=== PATIENT | female | born 1965 | race Caucasian/White ===

== ENCOUNTER 2017-02-28 20:47 | Emergency (ER) | payer BC ==
[~2017-02-28] VITALS: Ht 172.7 cm; Wt 150.9 kg
[2017-02-28 20:50] VITALS: TEMP 37.8; Ht 172.7 cm; Wt 150.9 kg
[2017-02-28] MEDS ORDERED: ACETAMINOPHEN 500 MG TAB PO STA (21:11)
[2017-02-28] MEDS ORDERED: CEFTRIAXONE SOD 350MG/ML 1 GM VIAL IM ONE (21:15)
[2017-02-28] MEDS ORDERED: AMOX875T PO (21:20)
[2017-02-28] MEDS ORDERED: IBUP-103 PO (21:27)
[2017-02-28] MEDS ORDERED: AMOXICIL/CLAVU 875MG HOME PACK PO ONE (21:28)
--- NOTE | 2017-02-28 21:31 | EMERGENCY ROOM VISIT NOTE ---
History Report prepared by Priya: Nazanin Reynoso Under the Supervision of: Dr. Ozzie Flores M.D. First contact with patient: 20:58 Chief Complaint: LEG PAIN,LEG INJURY Stated Complaint: LEFT LEG RED, HURTS,SWOLLEN History of Present Illness The patient is a 51 year old female who presents to the Emergency Room with complaints of persistent left leg redness starting today. She began feeling sick yesterday. She had a fever, chills, and a headache. She noticed her leg was irritated, but she thought it was just because she had scratched it. Today she noticed that her leg had become increasingly red, swollen, and painful. She felt dizzy earlier, but attributes it to not eating. She denies any vomiting. She has had cellulitis before on her neck. She denies any history of diabetes. She denies any other medical problems. Source of History: patient Onset: today Position: leg (left) Quality: other (redness) Timing: other (persistent) Associated Symptoms: + chills, + fevers, + headache, No vomiting Note: Pt reports left leg swelling and pain, dizziness. Review of Systems See HPI for pertinent positives & negatives. A total of 10 systems reviewed and were otherwise negative. Past Medical & Surgical History of previous cellulitis. Family History No pertinent family history stated. Social History Smoking Status: Never Smoker Marital Status: Occupation Status: employed Current/Historical Medications Scheduled Amoxicillin & Pot Clavulanate (Augmentin 875-125 mg), 875 MG PO BID Ibuprofen Tab (Advil), 400 MG PO PRN UD Allergies Coded Allergies: NO KNOWN DRUG ALLERGIES (Verified Allergy, Unknown, ., 04/02/16) Physical Exam Vital Signs Date Time Temp Pulse Resp B/P Pulse Ox O2 Delivery O2 Flow Rate FiO2 02/28/17 21:45 68 16 133/65 99 02/28/17 20:50 37.8 100 18 166/93 92 Room Air Physical Exam GENERAL: Patient is in no acute distress. HEENT: No acute trauma, normocephalic atraumatic, mucous membranes moist, no nasal congestion, no scleral icterus. NECK: No stridor, no adenopathy, no meningismus, trachea is midline. LUNGS: Clear to auscultation bilaterally, no wheeze, no rhonchi, breath sounds equal. HEART: Without murmurs gallops or rubs, regular rate and rhythm. ABDOMEN: Soft, nontender, bowel sounds positive, no hernias, no peritonitis. EXTREMITIES: There is an area maybe 10x20 cm in size to the left anterior leg consistent with cellulitis. There is erythema and warmth, no drainage. The area was outlined. NEUROLOGIC: Oriented x 3, no acute motor or sensory deficits, no focal weakness. SKIN: No rash, no jaundice, no diaphoresis. Medical Decision & Procedures Medications Administered Medications (Trade) Dose Ordered Sig/Deborah Route Start Time Stop Time Status Last Admin Dose Admin Acetaminophen (Tylenol Tab) 1,000 mg NOW STAT PO 02/28/17 21:11 02/28/17 21:14 DC 02/28/17 21:31 1,000 MG Ceftriaxone Sodium (Rocephin Im) 1,000 mg NOW ONCE IM 02/28/17 21:15 02/28/17 21:16 DC 02/28/17 21:31 1,000 MG ED Course 2105: The patient was evaluated in room B3B. A complete history and physical exam was performed. 2110: Acetaminophen 1000 mg PO. 2114: Rocephin Im 1000 mg IM. 2119: Reevaluated the patient. Discussed results and discharge instructions: she verbalized understanding and agreement. The patient is ready for discharge. 2124: Augmentin Tab 875 mg PO. Medical Decision Differential diagnosis: cellulitis, sepsis, electrolyte imbalance, anemia, dehydration, flu. The patient presents with an area of left leg redness. She has a low-grade fever, she has felt like she has the flu. She is not diabetic, she is not vomiting. She is not toxic. The patient states that she has had cellulitis in the past. Her current presentation is consistent with cellulitis. The patient received IM ceftriaxone and oral Augmentin. She was given oral Tylenol. I do think she is stable for discharge. The area was outlined. She will be on Augmentin, rest, hydration, leg elevation were encouraged. The patient was instructed to return here for worsening symptoms or if not improving , she can see her doctor this week if doing well. Impression Primary Impression: Left leg cellulitis Scribe Attestation The scribe's documentation has been prepared under my direction and personally reviewed by me in its entirety. I confirm that the note above accurately reflects all work, treatment, procedures, and medical decision making performed by me. Departure Information Dispostion Home / Self-Care Prescriptions Amoxicillin & Pot Clavulanate (Augmentin 875-125 mg) 1 Tab Tab 875 MG PO BID for 10 Days, #20 TAB Prov: Ozzie Flores M.D. 02/28/17 Referrals David Brush M.D. (PCP) Forms HOME CARE DOCUMENTATION FORM, IMPORTANT VISIT INFORMATION, Work Instructions Patient Instructions My [facility] Additional Instructions motrin and or tylenol for fever and pain augmentin 2x per day for 10 days rest and stay hydrated keep the leg elevated see your doctor for a recheck friday or friday return for worsening redness, vomiting or worsening symptoms as we discussed
[2017-02-28 21:45] VITALS: BP 133/65; PULSE 68; O2SAT 99
[2017-03-01] MEDS ORDERED: AMOXICILLIN/CLAVULANATE TAB 875 MG TAB PO ONE (09:00)
== END 2017-02-28 21:53 | disposition home or self-care (01) ==
LOC: C.EDB 20:48
DX: L03.116 Cellulitis of left lower limb (principal)

== ENCOUNTER 2021-02-14 02:54 | Inpatient (IN) ==
[2021-02-14] MEDS ORDERED: SODIUM CHLORIDE 0.9% 1000ML 1,000 ML IV ONE (03:11)
[2021-02-14] MEDS ORDERED: dexAMETHasone**PF** 10 MG/ML VIAL IV ONE (03:11)
[2021-02-14] MEDS ORDERED: ACETAMINOPHEN 500 MG TAB PO STA (03:11)
[2021-02-14] MEDS ORDERED: ACETAMINOPHEN 325 MG TAB ONE (03:12)
[2021-02-14] MEDS ORDERED: DEXAMETHASONE SOD INJ 4 MG/ML VIAL ONE (03:14)
--- NOTE | 2021-02-14 03:17 | Emergency Department Note ---
Impression & Plan Pneumonia due to COVID-19 virus, Hypoxia ED Provider Note Name: FERNANDO GORMAN Age: 55 Sex: F Arrives Via: Walk-In Informant: Patient ED Provider: Per Barba MD Chief Complaint: Shortness of breath Impression: Pneumonia due to Covid 19 Virus Hypoxia Medical Decision Makin yr old female with hsitory of hypothyroid who has been ill for the last 9-10 days with positive covid test a few days ago as an outpatient arrives for worsening shortness of breath. Patient signfiicantly hypoxic on arrival with O2 sats in to mid 70s on simple exertion. Sats and patient comfort much improved when placed on 6L NC. Given Tylenol po and decadron IV on arrival. Dehydrated appearing and IV fluids started. She does not have signficant wheezing nor history COPD/Asthma at this time to require neb initially. With evidence of covid will hold on abx at this time as well. CXR consistent with covid and labs ok. Dimer is elevated without hypotension/tachy. Reviewed with hospitalist who will order CTA and manage patient further. Prior Medical Record and Triage/Nursing Notes reviewed by Me Additional history obtained from chart Differentials: Reactive airway disease, pneumonia, pneumothorax, COPD, CHF, infections, cardiac ischemia, pulmonary embolism, musculoskeletal, gastrointestinal, as well as other pathologies. Vital Signs: reviewed and remarkable for hypoxia Interventions: saline lock, nss bolus, decadron iv, tylenol po Labs:Reviewed and remarkable for elevated dimer Imaging:X ray results are stated below per my interpretation: Chest: 1 view: Bilateral infiltrative disease EKG:Per My Interpretation: Indication SHOB: NSR 87 bpm, qtc 404. No Ectopy. No Ischemia. No previous for comparison Cardiac/Tele Monitoring: Cardiac Monitoring: An Order was placed for continuous cardiac monitoring. The monitor shows a rate of 80 with a normal sinus rhythm. Consults:Dr Chong Abreu Hospitalist Plan: Disposition:Hospitalization. Condition: Fair History of Present Illness:55 yr old female arrives for evaluation of shortness of breath. Patient notes she has been having cough, shortness of breath for the last 10 days. Was tested for Covid 4 days ago and was positive at urgent care. She notes that she has started having diarrhea, body aches, chills, fevers, nausea, lightheaded, cough, and dyspnea on exertion. Rapidly worsening over the last 24 hours. States she couldn't catch her breath tonight. Used Tylenol earlier in day without improvement. Denies syncope, headache, neck stiffness, leg swelling, calf pain, abdominal pain, urinary symptoms, rashes, nor other symptoms. No history of lung problems. She does not smoke. No trauma/injuries. Notes exertion makes worse, rest makes better. ROS: See above HPI for pertinent positives & negatives. A total of 10 systems reviewed and were otherwise negative. Past Medical History:Hypothyroid Past Surgical History:Endoscopy Family History:Healthy Social History:Works at [employer], no drugs/tobacco use, has significant other, has daughter in [place]. Home Medications:Synthroid Allergies:NKDA Vitals:Blood Pressure: 138/84, Pulse 96, RR 22, T 38C, O2 85% on RA Physical Exam: GENERAL: Patient is ill appearing and in moderate distress. EYES: No scleral icterus, unremarkable pupils. ENT: Mucous membranes dry, no nasal congestion. NECK: No masses appreciated, nomeningismus, trachea is midline. RESPIRATORY: Tachypnea, dyspnea, diffuse crackles, no overt wheezing CARDIOVASCULAR: Regular rate and rhythm.No murmurs, rubs, gallops appreciated. GASTROINTESTINAL: Abdomen soft, non-tender, no peritonitis.Bowel sounds positive.No masses appreciated. BACK: No midline tenderness, no CVA tenderness EXTREMITIES: Normal motion all extremities, no cyanosis, no edema. NEUROLOGIC: Alert and oriented, no acute motor or sensory deficits, no focal weakness, cranial nerves grossly intact. SKIN: No rash, no jaundice, no diaphoresis. PSYCH: Appropriate GCS: 15 ED Course: Times/Reassessments: Vastly improved on NC O2, hospitalist in to evaluate Per Barba MD Past Med/Surg History Medical History (Updated 02/14/21 @ 17:06 by Per Barba MD) History of colon polyps Hypothyroidism Neuropathy Bilateral feet Surgical History History of colonoscopy History of wisdom tooth extraction Family History (Updated 04/28/19 @ 09:25 by Silvia Irving RN) Father Family history of diabetes mellitus Uncle Family hx of colon cancer Grandmother (Maternal) Family hx of colon cancer Other No family history of adverse response to anesthesia Social History Smoking Status: Never smoker Second Hand Exposure: Yes (parents smoked); Hx Alcohol Use: Yes Alcohol type: beer, wine and hard liquor Hx Substance Use: No Preferred Language: German Communication Ability: Effective Refractory Worker Required: No Beliefs That Will Affect Care: None Current Living Situation: Family Current Living Situation Comment: Lives with boyfriend Other Information That Helps Us Care for You: No Feels Safe at Home: Yes Safety Concerns: Feels Safe At This Time Assistive Devices: Glasses Allergies Allergies Allergy/AdvReac Type Severity Reaction Status Date / Time No Known Drug Allergies Allergy Unknown . Verified 05/06/19 07:56 Home Meds Home Medications Medication Instructions Recorded Confirmed fluticasone propionate [Flonase 2 spray INTRANASAL BID 04/28/19 05/06/19 Allergy Relief] levothyroxine 100 mcg PO QAM 04/28/19 05/06/19 Results & Data (ED) Vital Signs Vital Signs - 24 hr 02/14/21 02:57 02/14/21 03:28 02/14/21 03:29 Temperature 38 C H Temperature Source Temporal Artery Scan Pulse Rate 96 H 90 88 Pulse Rate from SpO2 Sensor 90 88 Respiratory Rate 22 27 H 26 H Respiratory Effort / Characteristics Respiratory Depth Respiratory Pattern Blood Pressure 138/84 144/76 H Blood Pressure Mean 102 98 Blood Pressure Position Sitting Pulse Oximetry 85 L 92 93 Oxygen Delivery Method Room Air Oxygen Flow Rate Sepsis Recent Fever Within 48 Hours Yes Sepsis New/Unexplained Change in Mental Status No Sepsis Action Taken by Nursing No Action Required Oxygen Flow Rate - Titration Pulse Oximetry Post Tiitration 02/14/21 03:30 02/14/21 03:45 02/14/21 04:00 Temperature Temperature Source Pulse Rate 87 85 88 Pulse Rate from SpO2 Sensor 87 87 88 Respiratory Rate 24 21 25 H Respiratory Effort / Characteristics Respiratory Depth Respiratory Pattern Blood Pressure 137/63 123/61 115/58 L Blood Pressure Mean 87 81 77 Blood Pressure Position Pulse Oximetry 93 93 93 Oxygen Delivery Method Oxygen Flow Rate Sepsis Recent Fever Within 48 Hours Sepsis New/Unexplained Change in Mental Status Sepsis Action Taken by Nursing Oxygen Flow Rate - Titration Pulse Oximetry Post Tiitration 02/14/21 04:02 02/14/21 04:15 02/14/21 04:17 Temperature Temperature Source Pulse Rate 106 H 87 Pulse Rate from SpO2 Sensor 105 H 87 Respiratory Rate 31 H 20 Respiratory Effort / Characteristics Gasping/Agonal Nasal Flaring Short of Breath SOB on Exertion Respiratory Depth Shallow Respiratory Pattern Tachypnea Blood Pressure 125/70 Blood Pressure Mean 88 Blood Pressure Position Pulse Oximetry 78 L 93 93 Oxygen Delivery Method Room Air Oxygen Flow Rate 6 Sepsis Recent Fever Within 48 Hours Sepsis New/Unexplained Change in Mental Status Sepsis Action Taken by Nursing Oxygen Flow Rate - Titration 6 Pulse Oximetry Post Tiitration 93 02/14/21 04:30 02/14/21 04:31 02/14/21 04:45 Temperature Temperature Source Pulse Rate 81 81 80 Pulse Rate from SpO2 Sensor 81 81 81 Respiratory Rate 25 H 24 23 Respiratory Effort / Characteristics Respiratory Depth Respiratory Pattern Blood Pressure 123/74 110/59 L Blood Pressure Mean 90 76 Blood Pressure Position Pulse Oximetry 92 92 94 Oxygen Delivery Method Oxygen Flow Rate Sepsis Recent Fever Within 48 Hours Sepsis New/Unexplained Change in Mental Status Sepsis Action Taken by Nursing Oxygen Flow Rate - Titration Pulse Oximetry Post Tiitration 02/14/21 04:46 02/14/21 05:00 02/14/21 05:01 Temperature Temperature Source Pulse Rate 81 75 76 Pulse Rate from SpO2 Sensor 81 76 77 Respiratory Rate 20 24 22 Respiratory Effort / Characteristics Respiratory Depth Respiratory Pattern Blood Pressure 122/69 Blood Pressure Mean 86 Blood Pressure Position Pulse Oximetry 93 93 93 Oxygen Delivery Method Oxygen Flow Rate Sepsis Recent Fever Within 48 Hours Sepsis New/Unexplained Change in Mental Status Sepsis Action Taken by Nursing Oxygen Flow Rate - Titration Pulse Oximetry Post Tiitration 02/14/21 05:15 02/14/21 05:16 02/14/21 05:30 Temperature Temperature Source Pulse Rate 76 76 74 Pulse Rate from SpO2 Sensor 76 77 75 Respiratory Rate 22 22 19 Respiratory Effort / Characteristics Respiratory Depth Respiratory Pattern Blood Pressure 131/69 99/74 L Blood Pressure Mean 89 82 Blood Pressure Position Pulse Oximetry 92 92 92 Oxygen Delivery Method Oxygen Flow Rate Sepsis Recent Fever Within 48 Hours Sepsis New/Unexplained Change in Mental Status Sepsis Action Taken by Nursing Oxygen Flow Rate - Titration Pulse Oximetry Post Tiitration 02/14/21 05:31 Temperature Temperature Source Pulse Rate 77 Pulse Rate from SpO2 Sensor 76 Respiratory Rate 21 Respiratory Effort / Characteristics Respiratory Depth Respiratory Pattern Blood Pressure Blood Pressure Mean Blood Pressure Position Pulse Oximetry 92 Oxygen Delivery Method Oxygen Flow Rate Sepsis Recent Fever Within 48 Hours Sepsis New/Unexplained Change in Mental Status Sepsis Action Taken by Nursing Oxygen Flow Rate - Titration Pulse Oximetry Post Tiitration Laboratory Data Result diagrams: 02/14/21 03:45 02/14/21 03:45 Lab Results 02/14/21 02/14/21 02/14/21 Range/Units 03:40 03:45 03:45 WBC (4.8-10.8) K/uL RBC (4.2-5.4) M/uL Hgb (12.0-16.0) g/dL Hct (37-47) % MCV (80-100) fL MCH (25-34) pg MCHC (32-36) g/dL RDW Std Deviation (36.4-46.3) fL RDW Coeff of Moer (11.5-14.5) % Plt Count (130-400) K/uL MPV (7.4-10.4) fL Immature Gran % (Auto) % Neut % (Auto) % Lymph % (Auto) % Rogers % (Auto) % Eos % (Auto) % Baso % (Auto) % Neut # (Auto) (1.4-6.5) K/uL Lymph # (Auto) (1.2-3.4) K/uL Rogers # (Auto) (0.11-0.59) K/uL Eos # (Auto) (0-0.5) K/uL Baso # (Auto) (0-0.2) K/uL Immature Gran # (Auto) (0.00-0.02) K/uL PT (9.0-12.0) Seconds INR (0.9-1.1) D-Dimer (0-500) ug/L FEU Sodium 135 L (136-145) mmol/L Potassium 3.9 (3.5-5.1) mmol/L Chloride 104 (98-107) mmol/L Carbon Dioxide 27 (21-32) mmol/L Anion Gap 4.0 (3-11) BUN 27 H (7-18) mg/dl Creatinine 1.44 H (0.6-1.2) mg/dl Est Cr Clr Drug Dosing Not Reportable Est GFR ( Amer) 47.3 Est GFR (Non-Af Amer) 40.8 BUN/Creatinine Ratio 18.6 (10-20) Glucose 148 H (70-99) mg/dl Lactate 1.5 (0.4-2.0) mmol/L Calcium 8.4 L (8.5-10.1) mg/dl Magnesium 2.2 (1.8-2.4) mg/dl Total Bilirubin 0.5 (0.2-1) mg/dl Direct Bilirubin 0.2 (0-0.2) mg/dl AST 59 H (15-37) U/L ALT 34 (12-78) U/L Alkaline Phosphatase 78 (45-117) U/L Troponin I < 0.015 (0-0.045) ng/ml Total Protein 8.7 H (6.4-8.2) gm/dl Albumin 3.0 L (3.4-5.0) gm/dl Lipase 388 (73-393) U/L Procalcitonin (0-0.5) ng/ml TSH 1.950 (0.300-4.500) uIu/ml Urine Color Yellow Urine Appearance Cloudy A (Clear) Urine pH 5.0 (4.5-7.5) Ur Specific Cochran 1.019 (1.000-1.030) Urine Protein 2+ H (Negative) Urine Glucose (UA) Negative (Negative) Urine Ketones Negative (Negative) Urine Blood 2+ H (Negative) Urine Nitrite Negative (Negative) Urine Bilirubin Negative (Negative) Urine Urobilinogen Negative (Negative) Ur Leukocyte Esterase 1+ H (Negative) Urine WBC (Auto) 10-30 H (0-5) /hpf Urine RBC (Auto) 0-4 (0-4) /hpf U Hyaline Cast (Auto) 5-10 H (0-5) /lpf U Epithel Cells (Auto) 20-30 H (0-5) /lpf Urine Bacteria (Auto) 2+ H (Negative) COVID-19 Eval Order SARS-CoV-2 (PCR) (Negative) Influenza Type A (PCR) (Neg) Influenza Type B (PCR) (Neg) RSV (RT-PCR) (Neg) 02/14/21 02/14/21 02/14/21 Range/Units 03:45 03:45 03:45 WBC 6.70 (4.8-10.8) K/uL RBC 4.76 (4.2-5.4) M/uL Hgb 14.6 (12.0-16.0) g/dL Hct 43.4 (37-47) % MCV 91.2 (80-100) fL MCH 30.7 (25-34) pg MCHC 33.6 (32-36) g/dL RDW Std Deviation 47.4 H (36.4-46.3) fL RDW Coeff of Omer 14.0 (11.5-14.5) % Plt Count 152 (130-400) K/uL MPV 10.6 H (7.4-10.4) fL Immature Gran % (Auto) 0.6 % Neut % (Auto) 82.1 % Lymph % (Auto) 8.5 % Rogers % (Auto) 8.8 % Eos % (Auto) 0.0 % Baso % (Auto) 0.0 % Neut # (Auto) 5.50 (1.4-6.5) K/uL Lymph # (Auto) 0.57 L (1.2-3.4) K/uL Rogers # (Auto) 0.59 (0.11-0.59) K/uL Eos # (Auto) 0.00 (0-0.5) K/uL Baso # (Auto) 0.00 (0-0.2) K/uL Immature Gran # (Auto) 0.04 H (0.00-0.02) K/uL PT 9.8 (9.0-12.0) Seconds INR 1.0 (0.9-1.1) D-Dimer 1630 H* (0-500) ug/L FEU Sodium (136-145) mmol/L Potassium (3.5-5.1) mmol/L Chloride (98-107) mmol/L Carbon Dioxide (21-32) mmol/L Anion Gap (3-11) BUN (7-18) mg/dl Creatinine (0.6-1.2) mg/dl Est Cr Clr Drug Dosing Est GFR ( Amer) Est GFR (Non-Af Amer) BUN/Creatinine Ratio (10-20) Glucose (70-99) mg/dl Lactate (0.4-2.0) mmol/L Calcium (8.5-10.1) mg/dl Magnesium (1.8-2.4) mg/dl Total Bilirubin (0.2-1) mg/dl Direct Bilirubin (0-0.2) mg/dl AST (15-37) U/L ALT (12-78) U/L Alkaline Phosphatase (45-117) U/L Troponin I (0-0.045) ng/ml Total Protein (6.4-8.2) gm/dl Albumin (3.4-5.0) gm/dl Lipase (73-393) U/L Procalcitonin 0.09 (0-0.5) ng/ml TSH (0.300-4.500) uIu/ml Urine Color Urine Appearance (Clear) Urine pH (4.5-7.5) Ur Specific Cochran (1.000-1.030) Urine Protein (Negative) Urine Glucose (UA) (Negative) Urine Ketones (Negative) Urine Blood (Negative) Urine Nitrite (Negative) Urine Bilirubin (Negative) Urine Urobilinogen (Negative) Ur Leukocyte Esterase (Negative) Urine WBC (Auto) (0-5) /hpf Urine RBC (Auto) (0-4) /hpf U Hyaline Cast (Auto) (0-5) /lpf U Epithel Cells (Auto) (0-5) /lpf Urine Bacteria (Auto) (Negative) COVID-19 Eval Order SARS-CoV-2 (PCR) (Negative) Influenza Type A (PCR) (Neg) Influenza Type B (PCR) (Neg) RSV (RT-PCR) (Neg) 02/14/21 02/14/21 Range/Units 03:50 03:50 WBC (4.8-10.8) K/uL RBC (4.2-5.4) M/uL Hgb (12.0-16.0) g/dL Hct (37-47) % MCV (80-100) fL MCH (25-34) pg MCHC (32-36) g/dL RDW Std Deviation (36.4-46.3) fL RDW Coeff of Omer (11.5-14.5) % Plt Count (130-400) K/uL MPV (7.4-10.4) fL Immature Gran % (Auto) % Neut % (Auto) % Lymph % (Auto) % Rogers % (Auto) % Eos % (Auto) % Baso % (Auto) % Neut # (Auto) (1.4-6.5) K/uL Lymph # (Auto) (1.2-3.4) K/uL Rogers # (Auto) (0.11-0.59) K/uL Eos # (Auto) (0-0.5) K/uL Baso # (Auto) (0-0.2) K/uL Immature Gran # (Auto) (0.00-0.02) K/uL PT (9.0-12.0) Seconds INR (0.9-1.1) D-Dimer (0-500) ug/L FEU Sodium (136-145) mmol/L Potassium (3.5-5.1) mmol/L Chloride (98-107) mmol/L Carbon Dioxide (21-32) mmol/L Anion Gap (3-11) BUN (7-18) mg/dl Creatinine (0.6-1.2) mg/dl Est Cr Clr Drug Dosing Est GFR ( Amer) Est GFR (Non-Af Amer) BUN/Creatinine Ratio (10-20) Glucose (70-99) mg/dl Lactate (0.4-2.0) mmol/L Calcium (8.5-10.1) mg/dl Magnesium (1.8-2.4) mg/dl Total Bilirubin (0.2-1) mg/dl Direct Bilirubin (0-0.2) mg/dl AST (15-37) U/L ALT (12-78) U/L Alkaline Phosphatase (45-117) U/L Troponin I (0-0.045) ng/ml Total Protein (6.4-8.2) gm/dl Albumin (3.4-5.0) gm/dl Lipase (73-393) U/L Procalcitonin (0-0.5) ng/ml TSH (0.300-4.500) uIu/ml Urine Color Urine Appearance (Clear) Urine pH (4.5-7.5) Ur Specific Cochran (1.000-1.030) Urine Protein (Negative) Urine Glucose (UA) (Negative) Urine Ketones (Negative) Urine Blood (Negative) Urine Nitrite (Negative) Urine Bilirubin (Negative) Urine Urobilinogen (Negative) Ur Leukocyte Esterase (Negative) Urine WBC (Auto) (0-5) /hpf Urine RBC (Auto) (0-4) /hpf U Hyaline Cast (Auto) (0-5) /lpf U Epithel Cells (Auto) (0-5) /lpf Urine Bacteria (Auto) (Negative) COVID-19 Eval Order [facility]Rsv at [facility] SARS-CoV-2 (PCR) POSITIVE A* (Negative) Influenza Type A (PCR) Negative (Neg) Influenza Type B (PCR) Negative (Neg) RSV (RT-PCR) Negative (Neg) Administered Medications Enoxaparin Sodium (Enoxaparin Inj 40 Mg/0.4 Ml Syr) 40 mg SQ Q12H [facility] Stop: 03/16/21 07:59 Last Admin: 02/14/21 09:00 Dose: 40 mg Documented by: [id number] Fluticasone Propionate (Fluticasone Propionate Na Spr 16 Gm Btl) 2 sprays NA BID [facility] Stop: 03/16/21 08:59 Last Admin: 02/14/21 09:01 Dose: 2 sprays Documented by: [id number] Ceftriaxone Sodium 2,000 mg/ (Dextrose) 70 mls @ 100 mls/hr IV Q24H [facility]; Protocol Stop: 02/24/21 08:59 Last Infusion: 02/14/21 10:30 Dose: 0 mls/hr Documented by: [id number] Admin: 02/14/21 09:00 Dose: 100 mls/hr Documented by: [id number] Levothyroxine Sodium (Levothyroxine Sodium 100 Mcg Tablet) 100 mcg PO DAILYBB [facility] Stop: 03/16/21 06:29 Last Admin: 02/14/21 09:00 Dose: 100 mcg Documented by: [id number] Sodium Chloride (Sodium Chloride 0.9% 10ml Flush) 30 ml IV DAILY@1300 [facility] Stop: 02/18/21 13:01 Last Admin: 02/14/21 09:01 Dose: 30 ml Documented by: [id number] Discontinued Medications Acetaminophen (Acetaminophen 325 Mg Tab) Confirm Administered Dose 650 mg .ROUTE .STK-MED ONE Stop: 02/14/21 03:13 Last Admin: 02/14/21 04:14 Dose: Not Given Documented by: [id number] Acetaminophen (Acetaminophen 500 Mg Tab) 1,000 mg PO NOW [facility] Stop: 02/14/21 03:12 Last Admin: 02/14/21 03:33 Dose: 1,000 mg Documented by: [id number] Dexamethasone (Dexamethasone Sod Inj 4 Mg/Ml Vial) Confirm Administered Dose 12 mg .ROUTE .STK-MED ONE Stop: 02/14/21 03:15 Last Admin: 02/14/21 04:14 Dose: Not Given Documented by: [id number] Dexamethasone Sodium Phosphate (DexamethasonePf 10 Mg/Ml Vial) 10 mg IV NOW ONE Stop: 02/14/21 03:12 Last Admin: 02/14/21 03:47 Dose: 10 mg Documented by: [id number] Sodium Chloride (Nss 1000ml) 1,000 mls @ 999 mls/hr IV .Q1H1M ONE Stop: 02/14/21 04:11 Last Infusion: 02/14/21 05:29 Dose: 0 mls/hr Documented by: [id number] Admin: 02/14/21 03:47 Dose: 999 mls/hr Documented by: [id number] Remdesivir 200 mg/ Sodium (Chloride) 250 mls @ 125 mls/hr IV ONE ONE; Protocol Stop: 02/14/21 09:29 Last Infusion: 02/14/21 11:38 Dose: 0 mls/hr Documented by: [id number] Admin: 02/14/21 08:24 Dose: 125 mls/hr Documented by: [id number] Sodium Chloride (Nss 1000ml) 1,000 mls @ 100 mls/hr IV .Q10H [facility] Stop: 02/14/21 16:58 Last Admin: 02/14/21 08:25 Dose: 100 mls/hr Documented by: [id number] Ioversol (Optiray 350 500ml) 120 ml IV ONCE ONE Stop: 02/14/21 09:28 Last Admin: 02/14/21 09:27 Dose: 120 ml Documented by: [id number] Miscellaneous (Patient's Height And/Or Weight Needed) 1 ea N/A Q1H [facility] Stop: 03/16/21 07:14 Last Admin: 02/14/21 11:38 Dose: 1 ea Documented by: [id number] Admin: 02/14/21 08:25 Dose: 1 ea Documented by: [id number] Imaging Data Radiologist's Impression: Chest X-Ray 02/14/21 03:13 SINGLE VIEW CHEST CLINICAL HISTORY: Hypoxia. Covid. FINDINGS: An AP, portable, upright chest radiograph is obtained. No prior studies are available for comparison at the time of dictation. The heart is top normal for projection. Multifocal airspace consolidation is seen throughout both lungs. No large pleural effusion or pneumothorax is identified. The bony thorax is grossly intact. IMPRESSION: Multifocal airspace consolidation is consistent with the reported history of a viral pneumonia. Radiographic follow-up to resolution is recommended. ACT 112: Negative or not required by law. Electronically signed by: Ozzie Alfaro M.D. 02/14/2021 7:52 AM Discharge Plan Visit Data Chief Complaint: Respiratory Problems Stated Complaint: HAVING HARD TIME BREATHING,DIZZY ED Provider: Per Barba Discharge Problem: Pneumonia due to COVID-19 virus, Hypoxia Patient Disposition: Admitted As Inpatient Discharge Instructions Interventions: ED Discharge Assessment Last Done: 02/14/21 06:29
[2021-02-14 04:06] LABS: Hematocrit (blood only) 43.4 % (37-47); Hemoglobin 14.6 g/dL (12.0-16.0); Immature Granulocytes # (auto) 0.04 K/uL (0.00-0.02); Immature Granulocytes % (auto) 0.6 %; Lymphocytes # (auto) 0.57 K/uL (1.2-3.4); Lymphocytes % (auto) 8.5 %; Mean Corpuscular Hemoglobin 30.7 pg (25-34); Mean Corpuscular Hgb Conc 33.6 g/dL (32-36); Mean Corpuscular Volume 91.2 fL (80-100); Mean Platelet Volume 10.6 fL (7.4-10.4); Monocytes # (auto) 0.59 K/uL (0.11-0.59); Monocytes % (auto) 8.8 %; Neutrophils % (auto) 82.1 %; Platelet Count 152 K/uL (130-400); RDW Standard Deviation 47.4 fL (36.4-46.3); Red Blood Count 4.76 M/uL (4.2-5.4)
[2021-02-14 04:09] LABS: Appearance Urine Cloudy (Clear); Bacteria Urine Automated 2+ (Negative); Bilirubin Urine Negative (Negative); Blood Urine 2+ (Negative); Color Urine Yellow; Epithelial Cell Urine Auto 20-30 /lpf (0-5); Glucose Urine UA Negative (Negative); Ketones Urine Negative (Negative); Leukocyte Esterase Urine 1+ (Negative); Nitrite Urine Negative (Negative); Protein Urine 2+ (Negative); RBC Urine Automated 0-4 /hpf (0-4); Specific Gravity Urine 1.019 (1.000-1.030); Urobilinogen Urine Negative (Negative)
[2021-02-14 04:16] LABS: Prothrombin Time 9.8 Seconds (9.0-12.0)
[2021-02-14 04:22] LABS: D Dimer 1630 ug/L FEU (0-500)
[2021-02-14 04:28] LABS: Alanine Aminotransferase 34 U/L (12-78); Aspartate Aminotransferase 59 U/L (15-37); BUN Creatinine Ratio 18.6 (10-20); Bilirubin Direct 0.2 mg/dl (0-0.2); Blood Urea Nitrogen 27 mg/dl (7-18); Calcium 8.4 mg/dl (8.5-10.1); Carbon Dioxide 27 mmol/L (21-32); Chloride 104 mmol/L (98-107); Est GFR (African American) 47.3; Est GFR (Non-African American) 40.8; Glucose 148 mg/dl (70-99); Lipase 388 U/L (73-393); Magnesium 2.2 mg/dl (1.8-2.4); Potassium 3.9 mmol/L (3.5-5.1); Sodium 135 mmol/L (136-145)
[2021-02-14 04:39] LABS: Alkaline Phosphatase 78 U/L (45-117); Bilirubin,Total 0.5 mg/dl (0.2-1); Total Protein 8.7 gm/dl (6.4-8.2); Troponin I < 0.015 ng/ml (0-0.045)
[2021-02-14 04:42] LABS: Influenza A virus by PCR Negative (Neg); Influenza B virus by PCR Negative (Neg); RSV by PCR Negative (Neg)
[2021-02-14 05:15] LABS: SARS CoV2 RNA(COVID-19) InHosp POSITIVE (Negative)
[2021-02-14] MEDS ORDERED: NITROGLYCERIN SL 0.4 MG/TAB TAB SL PRN (06:59)
[2021-02-14] MEDS ORDERED: ACETAMINOPHEN 325 MG TAB PO PRN (06:59)
[2021-02-14] MEDS ORDERED: SODIUM CHLORIDE 0.9% 1000ML 1,000 ML IV SCH (06:59)
--- NOTE | 2021-02-14 07:09 | History and Physical Report ---
DATE OF ADMISSION: 02/14/2021 CHIEF COMPLAINT: Shortness of breath. HISTORY OF PRESENT ILLNESS: This is a 55-year-old female with past medical history significant for hyperlipidemia, prediabetes, hypothyroidism, morbid obesity, history of fibroid uterus, postmenopausal bleeding, presents with shortness of breath. The patient says she has COVID symptoms since about 10 days ago on Friday with cough, on and off headaches, on and off fevers, but it really got worse from Friday and last Friday she was tested positive for COVID, but symptoms were not getting better. She has few episodes of diarrhea, short of breath, poor appetite, not eating anything which prompted her to come to the ER and she was saturating only 72% on room air, requiring 6 liters oxygen in the ER. Denies any chest pain, no blurred vision, no earache, no runny nose, no sore throat, has cough with whitish yellow phlegm. Currently resting comfortably, hemodynamically stable, talking in full sentences and seems comfortable. Normal bladder movements. No rash. She says she was exposed at workplace. ALLERGIES: No known drug allergies. PAST MEDICAL HISTORY: As mentioned above. PAST SURGICAL HISTORY: Colonoscopy, dental surgery, colposcopy, genital warts removed. MEDICATIONS: The patient is on Flonase intranasal b.i.d., levothyroxine 100 mcg p.o. a.m. FAMILY HISTORY: Significant for paternal great grandmother had breast cancer. Maternal grandmother had colon cancer. Maternal grandfather has lung cancer. Paternal grandfather had lung cancer. Mother has lung cancer. Father has diabetes. Maternal uncle has colon cancer. SOCIAL HISTORY: Lives with significant other. No smoking. Alcohol socially. No drug use. REVIEW OF SYMPTOMS: As per HPI. Rest of review of systems negative. PHYSICAL EXAMINATION: GENERAL: The patient is morbidly obese, not in acute distress. VITAL SIGNS: Temperature 38, pulse 77, respiratory rate 21, blood pressure 122/69, currently 99/74, oxygen when she came in, she was in 78%, currently 92% on 6 liters. HEENT: Pupils equal, round, reactive to light. Oral mucosa moist. NECK: No JVD. No neck masses. CARDIOVASCULAR: S1, S2, regular rate and rhythm, no murmur, no gallop. RESPIRATORY SYSTEM: Normal AP diameter. No accessory muscle use. No wheezing, no crackles. ABDOMEN: Soft, bowel sounds present, nontender. No distention. CENTRAL NERVOUS SYSTEM: Cranial nerves II-XII grossly intact, nonfocal. EXTREMITIES: No edema, no erythema. LABORATORY DATA: WBC 6.7, hemoglobin 14.6, hematocrit 43.4, platelets 152, PT 9.8, INR 1. D-dimer 630. Sodium 135, potassium 3.9, chloride 104, bicarbonate 27, BUN 27, creatinine 1.4, serum glucose 148. Lactate 1.5, calcium 8.4, magnesium 2.2, total bilirubin 0.5, direct bilirubin 0.2, AST 59, ALT 34, alkaline phosphatase 78, troponin I less than 0.015. TSH 1.9. Procalcitonin 0.09, lipase 388. Urinalysis positive for leukocyte esterase and +2 bacteria. SARS-CoV-2 PCR positive. Influenza A and B PCR negative, RSV PCR negative. Chest x-ray, bilateral infiltrates seen. ASSESSMENT AND PLAN: A 55-year-old female presents with COVID pneumonia and hypoxia. 1. COVID pneumonia, hypoxia requiring 6 liters of oxygen. The patient is morbidly obese.Meets criteria for remdesivir and steroids. We will follow the remdesivir labs. Follow the inflammatory markers. Continue oxygen supplementation. Closely monitor on tele floor. D-dimer elevated at 1630. We will do CTA of the chest to rule out any pulmonary embolism. 2. Mild acute kidney injury. Creatinine 1.4, got fluids in the ER. Avoid nephrotoxic agents. We will continue fluids as getting CTA chest to rule out PE and follow the repeat labs. 3. Urinary tract infection. Continue with Rocephin. Follow the cultures. 4. Hypothyroidism. Continue Synthroid. 5. Morbid obesity, needs counseling. 6. prediabetes. Follow hba1c levels. Follow blood sugars as Patient getting steroids 6. Deep venous thrombosis prophylaxis, Lovenox. DISPOSITION: Admit to tele floor. Expect discharge home and follow with family doctor. Level 1 full code. dietary services manager to help with discharge planning. MTDD
[2021-02-14] MEDS ORDERED: REMDESIVIR 200 MG in SODIUM CHLORIDE 0.9% 210 ML IV ONE (07:30)
--- NOTE | 2021-02-14 07:54 | XRay Report ---
SINGLE VIEW CHEST CLINICAL HISTORY: Hypoxia. Covid. FINDINGS: An AP, portable, upright chest radiograph is obtained. No prior studies are available for c omparison at the time of dictation. The heart is top normal for projection. Multifocal airspace cons olidation is seen throughout both lungs. No large pleural effusion or pneumothorax is identified. The bony thorax is grossly intact. IMPRESSION: Multifocal airspace consolidation is consistent with the reported history of a viral pneu monia. Radiographic follow-up to resolution is recommended. ACT 112: Negative or not required by law. Electronically signed by: Ozzie Alfaro M.D. 02/14/2021 7:52 AM
[2021-02-14] MEDS: PATIENT'S HEIGHT AND/OR WEIGHT NEEDED SCH ×3 (08:25→19:31)
[2021-02-14] MEDS: LEVOTHYROXINE SODIUM 100 MCG TABLET PO SCH (09:00)
[2021-02-14] MEDS: ENOXAPARIN INJ 40 MG/0.4 ML SYR SQ SCH ×2 (09:00→19:41)
[2021-02-14] MEDS: cefTRIAXone SODIUM 2,000 MG in DEXTROSE 5% 50 ML IV SCH (09:00)
[2021-02-14] MEDS: SODIUM CHLORIDE 0.9% 10ML FLUSH IV SCH (09:01)
[2021-02-14] MEDS: FLUTICASONE PROPIONATE NA SPR 16 GM BTL SCH ×2 (09:01→20:32)
[2021-02-14] MEDS ORDERED: OPTIRAY 350 500ml IV ONE (09:27)
--- NOTE | 2021-02-14 09:57 | CT Scan Report ---
CT ANGIOGRAPHY OF THE CHEST, PULMONARY EMBOLUS PROTOCOL CLINICAL HISTORY: Worsening shortness of breath. Covid. COMPARISON STUDY: Chest radiograph performed earlier today. TECHNIQUE: Following IV administration of 120 mL of Optiray, helical axial images of the chest were o btained utilizing the pulmonary embolus protocol. Maximal intensity projections and sagittal and cor onal reformats were viewed on an independent 3D workstation. IV contrast was administered without co mplication. Automated exposure control was utilized for the study. A dose lowering technique was ut ilized adhering to the principles of ALARA. CT DOSE: 927.32 mGy.cm FINDINGS: No pulmonary emboli are identified. There is no thoracic aortic dissection. There are mult iple mildly enlarged mediastinal and bilateral hilar lymph nodes. No pericardial effusion is noted. T here is no pneumothorax or pleural effusion. Moderate to extensive bilateral airspace opacities have progressed since chest radiograph performed earlier today. There is no cavitation. The central airway s are patent. Visualized portions of the upper abdomen demonstrate hepatic steatosis. A low attenuati on 2.1 cm left adrenal nodule is likely benign. This favors an adenoma. IMPRESSION: 1. No pulmonary emboli identified. 2. Progression of moderate to extensive bilateral airspace opacities since chest radiograph performed earlier today. The findings represent viral pneumonia. 3. Multiple mildly enlarged mediastinal and bilateral hilar lymph nodes which are likely reactive. 4. Cardiomegaly. 5. Hepatic steatosis. ACT 112: Negative or not required by law. Electronically signed by: Caleb Leyva M.D. 02/14/2021 9:56 AM
[2021-02-14] MEDS ORDERED: BENZONATATE 100 MG CAPSULE PO PRN (12:16)
--- NOTE | 2021-02-14 15:24 | Electrocardiogram Report ---
Test Reason : Blood Pressure : / mmHG Vent. Rate : 087 BPM Atrial Rate : 087 BPM P-R Int : 146 ms QRS Dur : 100 ms QT Int : 336 ms P-R-T Axes : -01 024 033 degrees QTc Int : 404 ms Normal sinus rhythm Normal ECG No previous ECGs available Confirmed by Nima Stephens ([id number]) on 02/14/2021 3:24:16 PM Referred By: REFERRED SELF Confirmed By:Stefano Stephens
--- NOTE | 2021-02-14 16:37 | Hospitalist Progress Note ---
Date of Service February 14, 2021 Assessment & Plan (1) Pneumonia due to COVID-19 virus: Patient is a 55 yr female who presents with COVID pneumonia and hypoxia. Acute respiratory failure with hypoxia Multifocal COVID-19 pneumonia -CTA:No pulmonary emboli identified. Progression of moderate to extensive bilateral airspace opacities since chest radiograph performed earlier today. The findings represent viral pneumonia. Multiple mildly enlarged mediastinal and bilateral hilar lymph nodes which are likely reactive. Cardiomegaly. Hepatic steatosis. -Procalcitonin 0.09 -D-dimer 1630 Continue remdesivir, dexamethasone as per protocol Continue supplemental oxygen as needed Monitor volume status Pulmonary Hygiene Antitussive PRN Acute Kidney Injury Cr:1.4 Avoid nephrotoxic agents as able Continue gentle IV fluids Monitor renal function Abnormal UA R/O UTI Blood, urine culture pending Empirically started on Rocephin Hypothyroidism Continue Levothyroxine Morbid obesity BMI 50 Prediabetes Update HbA1C DVT Px: Lovenox SQ Code Status Full Code Admission and Anticipated Discharge Date Admission Date: February 14, 2021 Subjective Patient is seen and examined medicine States dyspnea is better Reports cough with clear expectoration Also reports having some chest discomfort associated with cough Intermittent dizziness with ambulation Denies nausea, vomiting, diarrhea, abdominal pain, dysuria, hematuria Offers no other complaints Review of Systems Review of Systems: All systems reviewed & are unremarkable except as noted in HPI & below Physical Exam Physical Exam: Physical Exam: Vitals signs as noted above General Appearance:Morbidly Obese, no apparent distress Head: normocephalic, Atraumatic Eyes: normal inspection, EOMI Neck: supple, Trachea midline Respiratory/Chest: Decreased breath sounds, B/L Crackles Cardiovascular: S1, S2, No murmur Abdomen/GI:Soft, Non tender, Bowel sounds present Extremities/Musculoskeletal:normal inspection, Trace edema Neurologic/Psych:AAOX3, grossly no focal neurological deficits Skin: normal color, warm Results & Data Results & Data ([facility]) Vital Signs (Past 12 Hours) Vital Signs Temp Pulse Pulse Resp BP BP Pulse Ox 02/14/21 16:08 36.8 C 66 18 129/80 91 02/14/21 10:58 68 18 153/91 H 93 02/14/21 07:10 37.3 C 69 22 130/66 93 02/14/21 06:29 36.8 C 02/14/21 05:31 77 21 92 02/14/21 05:30 74 19 99/74 L 92 02/14/21 05:16 76 22 92 02/14/21 05:15 76 22 131/69 92 02/14/21 05:01 76 22 93 02/14/21 05:00 75 24 122/69 93 02/14/21 04:46 81 20 93 02/14/21 04:45 80 23 110/59 L 94 02/14/21 04:31 81 24 92 02/14/21 04:30 81 25 H 123/74 92
[2021-02-15] MEDS ORDERED: ALBUTEROL HFA 8 GM INHALER INH ONE (00:05)
[2021-02-15 01:06] LABS: Base Excess ABG -0.8 mEq/L (-9-1.8); HCO3 ABG 24 mmol/L (19-24); Oxygen Saturation ABG 95.6 % (90-95); PCO2 ABG 38 mmHg (35-46); PO2 ABG 74 mmHg (80-95); pH ABG 7.41 (7.35-7.45)
[2021-02-15 01:14] LABS: Allen Test Pos (Pos)
[2021-02-15] MEDS: dexAMETHasone 6 MG in SYRINGE 0 ML IV SCH (01:23)
[2021-02-15 06:34] LABS: Basophils # (auto) 0.01 K/uL (0-0.2); Basophils % (auto) 0.2 %; Hematocrit (blood only) 42.7 % (37-47); Hemoglobin 14.2 g/dL (12.0-16.0); Immature Granulocytes # (auto) 0.04 K/uL (0.00-0.02); Immature Granulocytes % (auto) 0.6 %; Lymphocytes # (auto) 0.69 K/uL (1.2-3.4); Lymphocytes % (auto) 10.9 %; Mean Corpuscular Hemoglobin 30.5 pg (25-34); Mean Corpuscular Hgb Conc 33.3 g/dL (32-36); Mean Corpuscular Volume 91.6 fL (80-100); Mean Platelet Volume 11.3 fL (7.4-10.4); Monocytes # (auto) 0.76 K/uL (0.11-0.59); Neutrophils # (auto) 4.83 K/uL (1.4-6.5); Neutrophils % (auto) 76.3 %; Platelet Count 167 K/uL (130-400); RDW Coefficient of Variation 14.1 % (11.5-14.5); RDW Standard Deviation 47.4 fL (36.4-46.3); Red Blood Count 4.66 M/uL (4.2-5.4); White Blood Count 6.33 K/uL (4.8-10.8)
[2021-02-15] MEDS: LEVOTHYROXINE SODIUM 100 MCG TABLET PO SCH (06:37)
[2021-02-15 06:54] LABS: D Dimer 970 ug/L FEU (0-500)
--- NOTE | 2021-02-15 06:54 | XRay Report ---
XR chest 1V portable CLINICAL HISTORY: low o2 COMPARISON STUDY: Chest radiograph and chest CT February 14, 2021. FINDINGS: No pneumothorax or pleural effusion is identified. Cardiomegaly is unchanged. There has bee n mild progression of extensive bilateral airspace opacities. IMPRESSION: 1. Progression of extensive bilateral airspace opacities consistent with multifocal pneumonia. 2. Cardiomegaly. ACT 112: Negative or not required by law. Electronically signed by: Caleb Leyva M.D. 02/15/2021 6:53 AM
[2021-02-15] MEDS: ALBUTEROL HFA 8 GM INHALER INH SCH ×4 (07:05→19:16)
[2021-02-15 07:06] LABS: Alanine Aminotransferase 30 U/L (12-78); Albumin Level 2.7 gm/dl (3.4-5.0); Aspartate Aminotransferase 42 U/L (15-37); BUN Creatinine Ratio 24.1 (10-20); Blood Urea Nitrogen 26 mg/dl (7-18); Carbon Dioxide 27 mmol/L (21-32); Chloride 109 mmol/L (98-107); Creatinine Clr Calc Pharmacy 92.3 ml/min; Est GFR (African American) 67.7; Est GFR (Non-African American) 58.4; Glucose 187 mg/dl (70-99); Magnesium 2.5 mg/dl (1.8-2.4); Potassium 4.4 mmol/L (3.5-5.1); Sodium 141 mmol/L (136-145)
[2021-02-15 07:09] LABS: Alkaline Phosphatase 67 U/L (45-117); Bilirubin,Total 0.4 mg/dl (0.2-1); Ferritin 1002.8 ng/ml (8-388); Total Protein 7.7 gm/dl (6.4-8.2); Troponin I < 0.015 ng/ml (0-0.045)
[2021-02-15 07:43] LABS: Bilirubin Direct < 0.1 mg/dl (0-0.2)
[2021-02-15 07:49] LABS: Estimated Average Glucose 166 mg/dl; Hemoglobin A1C 7.4 % (4.5-5.6)
[2021-02-15] MEDS ORDERED: FUROSEMIDE 20 MG in SYRINGE 0 ML IV ONE (07:51)
[2021-02-15] MEDS ORDERED: dexAMETHasone 6 MG in SYRINGE 0 ML IV SCH (08:00)
[2021-02-15] MEDS: ENOXAPARIN INJ 40 MG/0.4 ML SYR SQ SCH ×2 (08:44→20:02)
[2021-02-15] MEDS: FLUTICASONE PROPIONATE NA SPR 16 GM BTL SCH ×2 (08:45→20:02)
[2021-02-15] MEDS: cefTRIAXone SODIUM 2,000 MG in DEXTROSE 5% 50 ML IV SCH (08:45)
[2021-02-15] MEDS ORDERED: GLUCOSE 40% GEL 15 GM TUBE PO PRN (09:14)
[2021-02-15] MEDS ORDERED: CARBOHYDRATES FOR HYPOGLYCEMIA PO PRN (09:14)
[2021-02-15] MEDS ORDERED: DEXTROSE 50% 50 ML SYRINGE IV PRN (09:14)
[2021-02-15] MEDS ORDERED: GLUCOSE 10 TABS/TUBE PO PRN (09:14)
[2021-02-15] MEDS ORDERED: GLUCAGON FOR INJ 1 MG VIAL SQ PRN (09:14)
[2021-02-15] MEDS ORDERED: FUROSEMIDE 40 MG/4 ML VIAL IV ONE (09:15)
[2021-02-15] MEDS: REMDESIVIR 100 MG in SODIUM CHLORIDE 0.9% 230 ML IV SCH (11:34)
[2021-02-15] MEDS ORDERED: INSULIN HUMAN NPH SC STA (12:10)
[2021-02-15] MEDS ORDERED: PHARMACY GLYCEMIC MGMT CONSULT SCH (12:10)
[2021-02-15] MEDS ORDERED: INSULIN GLARGINE SOLOSTAR 100 UNITS/ML 3 ML PEN SC STA (12:12)
[2021-02-15] MEDS: INSULIN ASPART 100 UNITS/ML 3 ML PEN SC SCH ×3 (12:40→20:44)
[2021-02-15] MEDS: SODIUM CHLORIDE 0.9% 10ML FLUSH IV SCH (12:48)
--- NOTE | 2021-02-15 17:47 | Hospitalist Progress Note ---
Date of Service February 15, 2021 Assessment & Plan (1) Pneumonia due to COVID-19 virus: Patient is a 55 yr female who presents with COVID pneumonia and hypoxia. Acute respiratory failure with hypoxia Multifocal COVID-19 pneumonia -CTA:No pulmonary emboli identified. Progression of moderate to extensive bilateral airspace opacities since chest radiograph performed earlier today. The findings represent viral pneumonia. Multiple mildly enlarged mediastinal and bilateral hilar lymph nodes which are likely reactive. Cardiomegaly. Hepatic steatosis. -Procalcitonin 0.09 -D-dimer 1630 Continue remdesivir, dexamethasone as per protocol Continue supplemental oxygen as needed Monitor volume status Pulmonary Hygiene Antitussive PRN Chest x-ray today showed progression of extensive bilateral airspace opacities Lasix PRN Encourage to prone Consider pulmonology evaluation if needed Acute Kidney Injury Cr:1.4>1.07 Avoid nephrotoxic agents as able Continue gentle IV fluids Monitor renal function DM II New Diagnosis HbA1C:7.4 Continue insulin therapy Monitor BGs UTI-POA Blood Culture: No growth to date Urine culture: E.Coli Continue Rocephin Day #2 Hypothyroidism Continue Levothyroxine Morbid obesity BMI 50 DVT Px: Lovenox SQ Code Status Full Code Admission and Anticipated Discharge Date Admission Date: February 14, 2021 Subjective Patient is seen and examined medicine Dizziness improved today Subjectively feels less cough today No significant shortness of breath Chest x-ray today showed progression of extensive bilateral airspace opacities Denies nausea, vomiting, diarrhea, abdominal pain, dysuria, hematuria Requiring 12 L of supplemental oxygen to maintain saturations Review of Systems Review of Systems: All systems reviewed & are unremarkable except as noted in HPI & below Physical Exam Physical Exam: Physical Exam: Vitals signs as noted above General Appearance:Morbidly Obese, no apparent distress Head: normocephalic, Atraumatic Eyes: normal inspection, EOMI Neck: supple, Trachea midline Respiratory/Chest: Decreased breath sounds, CTA Cardiovascular: S1, S2, No murmur Abdomen/GI:Soft, Non tender, Bowel sounds present Extremities/Musculoskeletal:normal inspection, Trace edema Neurologic/Psych:AAOX3, grossly no focal neurological deficits Skin: normal color, warm Results & Data Results & Data ([facility]) Vital Signs (Past 12 Hours) Vital Signs Temp Pulse Resp BP Pulse Ox 02/15/21 14:52 76 20 90 02/15/21 11:20 37.1 C 75 20 133/79 92 02/15/21 11:07 69 18 97 02/15/21 07:56 36.8 C 62 17 138/78 92 02/15/21 07:06 71 20 93 Laboratory Results Short CBC 02/15/21 Range/Units 05:34 WBC 6.33 (4.8-10.8) K/uL Hgb 14.2 (12.0-16.0) g/dL Hct 42.7 (37-47) % Plt Count 167 (130-400) K/uL BMP 02/15/21 05:34 Sodium 141 Potassium 4.4 Chloride 109 H Carbon Dioxide 27 BUN 26 H Creatinine 1.07 Glucose 187 H Calcium 9.0 Cardiac Enzymes 02/15/21 Range/Units 05:34 Troponin I < 0.015 (0-0.045) ng/ml Liver Function 02/15/21 Range/Units 05:34 Total Bilirubin 0.4 (0.2-1) mg/dl Direct Bilirubin < 0.1 D (0-0.2) mg/dl AST 42 H (15-37) U/L ALT 30 (12-78) U/L Alkaline Phosphatase 67 (45-117) U/L Albumin 2.7 L (3.4-5.0) gm/dl
[2021-02-15] MEDS ORDERED: INSULIN GLARGINE SOLOSTAR 100 UNITS/ML 3 ML PEN SC SCH (21:00)
[2021-02-16] MEDS: INSULIN ASPART 100 UNITS/ML 3 ML PEN SC SCH ×6 (00:01→19:55)
[2021-02-16] MEDS: LEVOTHYROXINE SODIUM 100 MCG TABLET PO SCH (05:57)
[2021-02-16 06:45] LABS: BUN Creatinine Ratio 27.5 (10-20); Calcium 8.7 mg/dl (8.5-10.1); Creatinine Clr Calc Pharmacy 98.5 ml/min; Est GFR (African American) 73.5; Est GFR (Non-African American) 63.4; Potassium 4.2 mmol/L (3.5-5.1)
[2021-02-16] MEDS: ALBUTEROL HFA 8 GM INHALER INH SCH (07:11)
[2021-02-16] MEDS: ENOXAPARIN INJ 40 MG/0.4 ML SYR SQ SCH (08:21)
[2021-02-16] MEDS: dexAMETHasone 6 MG in SYRINGE 0 ML IV SCH (08:21)
[2021-02-16] MEDS: INSULIN HUMAN NPH SC SCH (08:22)
[2021-02-16] MEDS: INSULIN GLARGINE SOLOSTAR 100 UNITS/ML 3 ML PEN SC SCH (08:24)
[2021-02-16] MEDS ORDERED: INSULIN HUMAN NPH SC SCH (09:00)
[2021-02-16] MEDS ORDERED: INSULIN GLARGINE SOLOSTAR 100 UNITS/ML 3 ML PEN SC SCH (09:00)
[2021-02-16] MEDS ORDERED: ALBUTEROL HFA 8 GM INHALER INH PRN (09:10)
[2021-02-16] MEDS: cefTRIAXone SODIUM 2,000 MG in DEXTROSE 5% 50 ML IV SCH (09:32)
[2021-02-16] MEDS: FLUTICASONE PROPIONATE NA SPR 16 GM BTL SCH ×2 (09:33→19:55)
--- NOTE | 2021-02-16 11:26 | Pharmacy Report ---
Pharmacy Glycemic Short Note 2 - Date of Service February 16, 2021 - Glycemic Short BSG Results (Last 24 hours): 02/15/21 02/15/21 02/15/21 11:30 11:31 17:29 Glucose POC Glucose 353 H* 312 H* 192 H 02/15/21 02/15/21 02/16/21 20:36 23:59 04:05 Glucose POC Glucose 180 H 151 H 132 H 02/16/21 02/16/21 05:28 07:48 Glucose 135 H POC Glucose 120 H OUTPATIENT ANTIDIABETIC REGIMEN: * N/A - no prior dx of DM * A1c = 7.4% 02/15/21 ASSESSMENT: * Patient admitted to Tele unit for COVID19 viral pneumonia * A1c 7.4% reveals possible dx of T2DM * Patient did develop severe hyperglycemia yesterday following dexamethasone IV. Dexamethasone 6mg IV continues * Basal/bolus SQ regimen initiated yesterday. BSGs trended down nicely and have been at goal since last PM. * Of note, patient reports poor appetite this AM. * Will continue similar basal/bolus regimen today and monitor appetite. Poor PO intake may lead to lower NPH/Novolog requirements to offset steroid induced post-prandial hyperglycemia. PLAN FOR INPATIENT GLYCEMIC CONTROL: * Basal insulin * Lantus 20 units Q AM * NPH 30 units (~0.3units/kg adj BW) Q AM with IV dexamethasone * Bolus insulin * NovoLog per scale ACHS and at 0200 * Goal Range: Low 110 mg/dL - High 140 mg/dL * Correction Factor: 18 mg/dL/unit * Nutritional / Prandial insulin per carb ratio of 1 unit per 6 grams CHO consumed PLAN FOR DISCHARGE: * to be determined.
[2021-02-16] MEDS: REMDESIVIR 100 MG in SODIUM CHLORIDE 0.9% 230 ML IV SCH (11:36)
[2021-02-16] MEDS: SODIUM CHLORIDE 0.9% 10ML FLUSH IV SCH (12:54)
--- NOTE | 2021-02-16 18:53 | Hospitalist Progress Note ---
Date of Service February 16, 2021 Assessment & Plan (1) Pneumonia due to COVID-19 virus: Patient is a 55 yr female who presents with COVID pneumonia and hypoxia. Acute respiratory failure with hypoxia Multifocal COVID-19 pneumonia -CTA:No pulmonary emboli identified. Progression of moderate to extensive bilateral airspace opacities since chest radiograph performed earlier today. The findings represent viral pneumonia. Multiple mildly enlarged mediastinal and bilateral hilar lymph nodes which are likely reactive. Cardiomegaly. Hepatic steatosis. -Procalcitonin 0.09 -D-dimer 1630 Continue remdesivir, dexamethasone as per protocol Continue supplemental oxygen as needed Monitor volume status Pulmonary Hygiene Antitussive PRN Chest x-ray today showed progression of extensive bilateral airspace opacities Lasix PRN Encourage to prone Continue current management Oxygen requirement trending down--currently on 5 L of supplemental oxygen Acute Kidney Injury Cr:1.4>1.0 Avoid nephrotoxic agents as able Received gentle IV fluids Monitor renal function Vaginal Bleeding Had Menopauses ~5yrs ago Lovenox held Consulted OBGYN Monitor H&H DM II New Diagnosis HbA1C:7.4 Continue insulin therapy Monitor BGs UTI-POA Blood Culture: No growth to date Urine culture: E.Coli Continue Rocephin Day #3 Hypothyroidism Continue Levothyroxine Morbid obesity BMI 50 DVT Px: SCDs Re: Vaginal bleeding Code Status Full Code Admission and Anticipated Discharge Date Admission Date: February 14, 2021 Subjective Patient is seen and examined medicine Dyspnea on exertion, cough improving No dizziness today States having vaginal bleeding Denies nausea, vomiting, diarrhea, abdominal pain, dysuria, hematuria Review of Systems Review of Systems: All systems reviewed & are unremarkable except as noted in HPI & below Physical Exam Physical Exam: Physical Exam: Vitals signs as noted above General Appearance:Morbidly Obese, no apparent distress Head: normocephalic, Atraumatic Eyes: normal inspection, EOMI Neck: supple, Trachea midline Respiratory/Chest: Decreased breath sounds, CTA Cardiovascular: S1, S2, No murmur Abdomen/GI:Soft, Non tender, Bowel sounds present Extremities/Musculoskeletal:normal inspection, Trace edema Neurologic/Psych:AAOX3, grossly no focal neurological deficits Skin: normal color, warm Results & Data Results & Data ([facility]) Vital Signs (Past 12 Hours) Vital Signs Temp Pulse Pulse Resp BP Pulse Ox 02/16/21 16:00 60 02/16/21 15:22 37.0 C 72 20 159/95 H 90 02/16/21 14:44 92 02/16/21 11:22 93 02/16/21 10:50 36.6 C 65 19 128/81 92 02/16/21 08:00 57 L 02/16/21 07:11 63 20 95 02/16/21 06:56 37.2 C 56 L 18 128/83 95 Laboratory Results [facility] 02/16/21 05:28 Sodium 142 Potassium 4.2 Chloride 111 H Carbon Dioxide 27 BUN 27 H Creatinine 1.00 Glucose 135 H Calcium 8.7 Liver Function 02/16/21 Range/Units 05:28 AST 33 (15-37) U/L ALT 30 (12-78) U/L
[2021-02-17] MEDS ORDERED: INSULIN ASPART 100 UNITS/ML 3 ML PEN SC SCH (02:00)
[2021-02-17] MEDS: LEVOTHYROXINE SODIUM 100 MCG TABLET PO SCH (05:45)
[2021-02-17 06:43] LABS: Hematocrit (blood only) 43.4 % (37-47); Mean Corpuscular Hgb Conc 32.3 g/dL (32-36); Mean Corpuscular Volume 93.1 fL (80-100); Mean Platelet Volume 10.5 fL (7.4-10.4); Platelet Count 198 K/uL (130-400); RDW Coefficient of Variation 14.1 % (11.5-14.5); RDW Standard Deviation 47.9 fL (36.4-46.3); Red Blood Count 4.66 M/uL (4.2-5.4); White Blood Count 7.07 K/uL (4.8-10.8)
[2021-02-17 07:26] LABS: BUN Creatinine Ratio 31.1 (10-20); Calcium 8.6 mg/dl (8.5-10.1); Creatinine Clr Calc Pharmacy 110.6 ml/min; Est GFR (African American) 84.6; Potassium 4.2 mmol/L (3.5-5.1)
[2021-02-17] MEDS: cefTRIAXone SODIUM 2,000 MG in DEXTROSE 5% 50 ML IV SCH (09:30)
[2021-02-17] MEDS: dexAMETHasone 6 MG in SYRINGE 0 ML IV SCH (09:31)
[2021-02-17] MEDS: FLUTICASONE PROPIONATE NA SPR 16 GM BTL SCH ×2 (09:31→20:20)
[2021-02-17] MEDS: INSULIN GLARGINE SOLOSTAR 100 UNITS/ML 3 ML PEN SC SCH ×2 (09:31→09:50)
[2021-02-17] MEDS: INSULIN ASPART 100 UNITS/ML 3 ML PEN SC SCH ×4 (09:33→20:52)
[2021-02-17] MEDS: INSULIN HUMAN NPH SC SCH (09:34)
--- NOTE | 2021-02-17 10:27 | Pharmacy Report ---
Pharmacy Glycemic Short Note 2 - Date of Service February 17, 2021 - Glycemic Short BSG Results (Last 24 hours): 02/16/21 02/16/21 02/16/21 11:28 16:52 19:39 Glucose POC Glucose 161 H 164 H 174 H 02/17/21 02/17/21 02/17/21 00:52 05:33 08:06 Glucose 108 H POC Glucose 111 H 91 OUTPATIENT ANTIDIABETIC REGIMEN: * N/A - no prior dx of DM * A1c = 7.4% 02/15/21 ASSESSMENT: 02/17: * Patient received 77 units of insulin yesterday * 50 units basal + 27 units bolus * BSGs were [phone] mg/dL, controlled * Fasting BSG was 91 mg/dL this AM, below goal * Will reduce Lantus dose today. May be able to d/c Lantus in coming days and just cover steroids with NPH * Continue NPH * Tightened carb ratio this AM secondary to rise in postprandial BSGs throughout the day yesterday 02/16: * Patient admitted to Tele unit for COVID19 viral pneumonia * A1c 7.4% reveals possible dx of T2DM * Patient did develop severe hyperglycemia yesterday following dexamethasone IV. Dexamethasone 6mg IV continues * Basal/bolus SQ regimen initiated yesterday. BSGs trended down nicely and have been at goal since last PM. * Of note, patient reports poor appetite this AM. * Will continue similar basal/bolus regimen today and monitor appetite. Poor PO intake may lead to lower NPH/Novolog requirements to offset steroid induced post-prandial hyperglycemia. PLAN FOR INPATIENT GLYCEMIC CONTROL: * Basal insulin - reduced Lantus * Lantus 10 units SC AM * NPH 30 units (~0.3units/kg adj BW) SC AM with IV dexamethasone (hold if dexamethasone held/discontinued) * Bolus insulin - tightened carb ratio * NovoLog per scale ACHS and at 0200 * Goal Range: Low 110 mg/dL - High 140 mg/dL * Correction Factor: 18 mg/dL/unit * Nutritional / Prandial insulin per carb ratio of 1 unit per 5 grams CHO consumed PLAN FOR DISCHARGE: * HbA1c was 7.4% from this admission which reveals a dx of T2DM. * Recommend diet change and exercise upon discharge to help control T2DM. * Recommend starting metformin 500 mg ER once daily with dinner. Continue to titrate metformin dosing upwards as recommended. Dosage increases should be made in increments of 500 mg weekly, up to 2,000 mg/day PO, given in divided doses. Doses above 2000 mg/day may be better tolerated if divided and given 3 times per day with meals. Max: 2,550 mg/day PO, in divided doses. B12 supplementation may be necessary with retirement metformin.
[2021-02-17] MEDS: REMDESIVIR 100 MG in SODIUM CHLORIDE 0.9% 230 ML IV SCH (11:11)
[2021-02-17] MEDS: SODIUM CHLORIDE 0.9% 10ML FLUSH IV SCH (11:12)
--- NOTE | 2021-02-17 11:44 | Consultation ---
Date of Consultation February 17, 2021 Assessment & Plan (1) Post-menopausal bleeding: History of Present Illness 55 F P1001 post-menopausal for 5 years seen at [facility] for shortness of breath and recently diagnosed Covid pneumonia. She has had several days of light vaginal bleeding. No prior history of post-menopausal bleeding. No hormone replacement therapy in the past or currently. She has not seen a strip deburrer in years. She was on Lovenox but stopped in hospital due to the bleeding. Her H/H is stable. She will need pelvic ultrasound and w/u as outpatient Attending Physician: Clayton Purdy MD Allergies Allergy/AdvReac Type Severity Reaction Status Date / Time No Known Drug Allergies Allergy Unknown . Verified 05/06/19 07:56 Home Medications Medication Instructions Recorded Confirmed Type fluticasone propionate [Flonase 2 spray INTRANASAL BID 04/28/19 05/06/19 History Allergy Relief] levothyroxine 100 mcg PO QAM 04/28/19 05/06/19 History Patient History Medical History History of colon polyps Hypothyroidism Neuropathy Bilateral feet Surgical History History of colonoscopy History of wisdom tooth extraction Family History Father Family history of diabetes mellitus Uncle Family hx of colon cancer Grandmother (Maternal) Family hx of colon cancer Other No family history of adverse response to anesthesia Social History Smoking Status: Never smoker Second Hand Exposure: Yes (parents smoked); Hx Alcohol Use: Yes Alcohol type: beer, wine and hard liquor Hx Substance Use: No Preferred Language: Bangladeshi Communication Ability: Effective Ore Crushing Dust Collector Required: No Beliefs That Will Affect Care: None Current Living Situation: Family Current Living Situation Comment: Lives with boyfriend Other Information That Helps Us Care for You: No Feels Safe at Home: Yes Safety Concerns: Feels Safe At This Time Assistive Devices: Glasses and Oxygen - Continuous Immunizations: No Covid vaccine Review of Systems Review of Systems: All systems reviewed & are unremarkable except as noted in HPI & below Physical Exam Constitutional: WD/WN, vitals as above + obese and + in distress Results & Data ([facility]) Vital Signs (Past 12 Hours) Vital Signs Temp Pulse Resp BP Pulse Ox Pulse Ox 02/17/21 11:22 36.6 C 61 19 126/70 91 02/17/21 08:09 36.5 C 66 21 138/73 91 02/17/21 06:00 93 02/17/21 03:23 37.0 C 72 20 128/105 H 90 Laboratory Results Laboratory Results - last 72 hr 02/15/21 02/15/21 02/15/21 00:36 05:34 05:34 WBC RBC Hgb Hct MCV MCH MCHC RDW Std Deviation RDW Coeff of Omer Plt Count MPV Immature Gran % (Auto) Neut % (Auto) Lymph % (Auto) Jackson % (Auto) Eos % (Auto) Baso % (Auto) Neut # (Auto) Lymph # (Auto) Jackson # (Auto) Eos # (Auto) Baso # (Auto) Immature Gran # (Auto) D-Dimer 970 H* ABG pH 7.41 ABG pCO2 38 ABG pO2 74 L ABG HCO3 24 ABG O2 Saturation 95.6 H ABG Base Excess -0.8 Reyes Test Pos Barometric Pressure 730.3 Oxygen Given 13L Sodium 141 Potassium 4.4 Chloride 109 H Carbon Dioxide 27 Anion Gap 6.0 BUN 26 H Creatinine 1.07 Est Cr Clr Drug Dosing 92.3 Est GFR ( Amer) 67.7 Est GFR (Non-Af Amer) 58.4 BUN/Creatinine Ratio 24.1 H Glucose 187 H POC Glucose Estimat Average Glucose Hemoglobin A1c Calcium 9.0 Magnesium 2.5 H Ferritin 1002.8 H Total Bilirubin 0.4 Direct Bilirubin < 0.1 D AST 42 H ALT 30 Alkaline Phosphatase 67 Troponin I < 0.015 C-Reactive Protein 10.30 H Total Protein 7.7 Albumin 2.7 L Hepatitis C Ab Screen 02/15/21 02/15/21 02/15/21 05:34 05:34 05:34 WBC 6.33 RBC 4.66 Hgb 14.2 Hct 42.7 MCV 91.6 MCH 30.5 MCHC 33.3 RDW Std Deviation 47.4 H RDW Coeff of Omer 14.1 Plt Count 167 MPV 11.3 H Immature Gran % (Auto) 0.6 Neut % (Auto) 76.3 Lymph % (Auto) 10.9 Jackson % (Auto) 12.0 Eos % (Auto) 0.0 Baso % (Auto) 0.2 Neut # (Auto) 4.83 Lymph # (Auto) 0.69 L Jackson # (Auto) 0.76 H Eos # (Auto) 0.00 Baso # (Auto) 0.01 Immature Gran # (Auto) 0.04 H D-Dimer ABG pH ABG pCO2 ABG pO2 ABG HCO3 ABG O2 Saturation ABG Base Excess Reyes Test Barometric Pressure Oxygen Given Sodium Potassium Chloride Carbon Dioxide Anion Gap BUN Creatinine Est Cr Clr Drug Dosing Est GFR ( Amer) Est GFR (Non-Af Amer) BUN/Creatinine Ratio Glucose POC Glucose Estimat Average Glucose 166 Hemoglobin A1c 7.4 H Calcium Magnesium Ferritin Total Bilirubin Direct Bilirubin AST ALT Alkaline Phosphatase Troponin I C-Reactive Protein Total Protein Albumin Hepatitis C Ab Screen Neg 02/15/21 02/15/21 02/15/21 11:30 11:31 17:29 WBC RBC Hgb Hct MCV MCH MCHC RDW Std Deviation RDW Coeff of Omer Plt Count MPV Immature Gran % (Auto) Neut % (Auto) Lymph % (Auto) Jackson % (Auto) Eos % (Auto) Baso % (Auto) Neut # (Auto) Lymph # (Auto) Jackson # (Auto) Eos # (Auto) Baso # (Auto) Immature Gran # (Auto) D-Dimer ABG pH ABG pCO2 ABG pO2 ABG HCO3 ABG O2 Saturation ABG Base Excess Reyes Test Barometric Pressure Oxygen Given Sodium Potassium Chloride Carbon Dioxide Anion Gap BUN Creatinine Est Cr Clr Drug Dosing Est GFR ( Amer) Est GFR (Non-Af Amer) BUN/Creatinine Ratio Glucose POC Glucose 353 H* 312 H* 192 H Estimat Average Glucose Hemoglobin A1c Calcium Magnesium Ferritin Total Bilirubin Direct Bilirubin AST ALT Alkaline Phosphatase Troponin I C-Reactive Protein Total Protein Albumin Hepatitis C Ab Screen 02/15/21 02/15/21 02/16/21 20:36 23:59 04:05 WBC RBC Hgb Hct MCV MCH MCHC RDW Std Deviation RDW Coeff of Omer Plt Count MPV Immature Gran % (Auto) Neut % (Auto) Lymph % (Auto) Jackson % (Auto) Eos % (Auto) Baso % (Auto) Neut # (Auto) Lymph # (Auto) Jackson # (Auto) Eos # (Auto) Baso # (Auto) Immature Gran # (Auto) D-Dimer ABG pH ABG pCO2 ABG pO2 ABG HCO3 ABG O2 Saturation ABG Base Excess Reyes Test Barometric Pressure Oxygen Given Sodium Potassium Chloride Carbon Dioxide Anion Gap BUN Creatinine Est Cr Clr Drug Dosing Est GFR ( Amer) Est GFR (Non-Af Amer) BUN/Creatinine Ratio Glucose POC Glucose 180 H 151 H 132 H Estimat Average Glucose Hemoglobin A1c Calcium Magnesium Ferritin Total Bilirubin Direct Bilirubin AST ALT Alkaline Phosphatase Troponin I C-Reactive Protein Total Protein Albumin Hepatitis C Ab Screen 02/16/21 02/16/21 02/16/21 05:28 07:48 11:28 WBC RBC Hgb Hct MCV MCH MCHC RDW Std Deviation RDW Coeff of Omer Plt Count MPV Immature Gran % (Auto) Neut % (Auto) Lymph % (Auto) Jackson % (Auto) Eos % (Auto) Baso % (Auto) Neut # (Auto) Lymph # (Auto) Jackson # (Auto) Eos # (Auto) Baso # (Auto) Immature Gran # (Auto) D-Dimer ABG pH ABG pCO2 ABG pO2 ABG HCO3 ABG O2 Saturation ABG Base Excess Reyes Test Barometric Pressure Oxygen Given Sodium 142 Potassium 4.2 Chloride 111 H Carbon Dioxide 27 Anion Gap 4.0 BUN 27 H Creatinine 1.00 Est Cr Clr Drug Dosing 98.5 Est GFR ( Amer) 73.5 Est GFR (Non-Af Amer) 63.4 BUN/Creatinine Ratio 27.5 H Glucose 135 H POC Glucose 120 H 161 H Estimat Average Glucose Hemoglobin A1c Calcium 8.7 Magnesium Ferritin Total Bilirubin Direct Bilirubin AST 33 ALT 30 Alkaline Phosphatase Troponin I C-Reactive Protein Total Protein Albumin Hepatitis C Ab Screen 02/16/21 02/16/21 02/17/21 16:52 19:39 00:52 WBC RBC Hgb Hct MCV MCH MCHC RDW Std Deviation RDW Coeff of Omer Plt Count MPV Immature Gran % (Auto) Neut % (Auto) Lymph % (Auto) Jackson % (Auto) Eos % (Auto) Baso % (Auto) Neut # (Auto) Lymph # (Auto) Jackson # (Auto) Eos # (Auto) Baso # (Auto) Immature Gran # (Auto) D-Dimer ABG pH ABG pCO2 ABG pO2 ABG HCO3 ABG O2 Saturation ABG Base Excess Reyes Test Barometric Pressure Oxygen Given Sodium Potassium Chloride Carbon Dioxide Anion Gap BUN Creatinine Est Cr Clr Drug Dosing Est GFR ( Amer) Est GFR (Non-Af Amer) BUN/Creatinine Ratio Glucose POC Glucose 164 H 174 H 111 H Estimat Average Glucose Hemoglobin A1c Calcium Magnesium Ferritin Total Bilirubin Direct Bilirubin AST ALT Alkaline Phosphatase Troponin I C-Reactive Protein Total Protein Albumin Hepatitis C Ab Screen 02/17/21 02/17/21 02/17/21 05:33 05:33 08:06 WBC 7.07 RBC 4.66 Hgb 14.0 Hct 43.4 MCV 93.1 MCH 30.0 MCHC 32.3 RDW Std Deviation 47.9 H RDW Coeff of Omer 14.1 Plt Count 198 MPV 10.5 H Immature Gran % (Auto) Neut % (Auto) Lymph % (Auto) Jackson % (Auto) Eos % (Auto) Baso % (Auto) Neut # (Auto) Lymph # (Auto) Jackson # (Auto) Eos # (Auto) Baso # (Auto) Immature Gran # (Auto) D-Dimer ABG pH ABG pCO2 ABG pO2 ABG HCO3 ABG O2 Saturation ABG Base Excess Reeys Test Barometric Pressure Oxygen Given Sodium 143 Potassium 4.2 Chloride 112 H Carbon Dioxide 26 Anion Gap 5.0 BUN 28 H Creatinine 0.89 Est Cr Clr Drug Dosing 110.6 Est GFR ( Amer) 84.6 Est GFR (Non-Af Amer) 73.0 BUN/Creatinine Ratio 31.1 H Glucose 108 H POC Glucose 91 Estimat Average Glucose Hemoglobin A1c Calcium 8.6 Magnesium Ferritin Total Bilirubin Direct Bilirubin AST 26 ALT 28 Alkaline Phosphatase Troponin I C-Reactive Protein Total Protein Albumin Hepatitis C Ab Screen 02/17/21 11:19 WBC RBC Hgb Hct MCV MCH MCHC RDW Std Deviation RDW Coeff of Omer Plt Count MPV Immature Gran % (Auto) Neut % (Auto) Lymph % (Auto) Jackson % (Auto) Eos % (Auto) Baso % (Auto) Neut # (Auto) Lymph # (Auto) Jackson # (Auto) Eos # (Auto) Baso # (Auto) Immature Gran # (Auto) D-Dimer ABG pH ABG pCO2 ABG pO2 ABG HCO3 ABG O2 Saturation ABG Base Excess Reyes Test Barometric Pressure Oxygen Given Sodium Potassium Chloride Carbon Dioxide Anion Gap BUN Creatinine Est Cr Clr Drug Dosing Est GFR ( Amer) Est GFR (Non-Af Amer) BUN/Creatinine Ratio Glucose POC Glucose 150 H Estimat Average Glucose Hemoglobin A1c Calcium Magnesium Ferritin Total Bilirubin Direct Bilirubin AST ALT Alkaline Phosphatase Troponin I C-Reactive Protein Total Protein Albumin Hepatitis C Ab Screen
--- NOTE | 2021-02-17 19:07 | Hospitalist Progress Note ---
Date of Service February 17, 2021 Assessment & Plan (1) Pneumonia due to COVID-19 virus: Patient is a 55 yr female who presents with COVID pneumonia and hypoxia. Acute respiratory failure with hypoxia Multifocal COVID-19 pneumonia -CTA:No pulmonary emboli identified. Progression of moderate to extensive bilateral airspace opacities since chest radiograph performed earlier today. The findings represent viral pneumonia. Multiple mildly enlarged mediastinal and bilateral hilar lymph nodes which are likely reactive. Cardiomegaly. Hepatic steatosis. -Procalcitonin 0.09 -D-dimer 1630 Continue remdesivir, dexamethasone as per protocol Day #4 Monitor volume status Pulmonary Hygiene Antitussive PRN Lasix PRN Encourage to prone Titrate oxygen to keep sats greater than 90% Acute Kidney Injury Cr:1.4>1.0>0.89 Avoid nephrotoxic agents as able Received gentle IV fluids Monitor renal function Vaginal Bleeding Had Menopauses ~5yrs ago Lovenox held Consulted OBGYN Hb stable DM II New Diagnosis HbA1C:7.4 Continue insulin therapy Monitor BGs UTI-POA Blood Culture: No growth to date Urine culture: E.Coli Continue Rocephin Day #4/5 Hypothyroidism Continue Levothyroxine Morbid obesity BMI 50 DVT Px: SCDs Re: Vaginal bleeding Code Status Full Code Admission and Anticipated Discharge Date Admission Date: February 14, 2021 Subjective Patient is seen and examined at bedside Denies dyspnea today Minimal cough Still has minimal vaginal bleeding No new complaints Hemoglobin stable Offers no other complaints Denies chest pain, nausea, vomiting, diarrhea, abdominal pain, dysuria, hematuria Review of Systems Review of Systems: All systems reviewed & are unremarkable except as noted in HPI & below Physical Exam Physical Exam: Physical Exam: Vitals signs as noted above General Appearance:Morbidly Obese, no apparent distress Head: normocephalic, Atraumatic Eyes: normal inspection, EOMI Neck: supple, Trachea midline Respiratory/Chest: Decreased breath sounds, CTA Cardiovascular: S1, S2, No murmur Abdomen/GI:Soft, Non tender, Bowel sounds present Extremities/Musculoskeletal:normal inspection, Trace edema Neurologic/Psych:AAOX3, grossly no focal neurological deficits Skin: normal color, warm Results & Data Results & Data ([facility]) Vital Signs (Past 12 Hours) Vital Signs Temp Pulse Pulse Resp BP Pulse Ox 02/17/21 15:42 36.6 C 59 L 19 143/81 H 93 02/17/21 15:00 51 L 02/17/21 11:22 36.6 C 61 19 126/70 91 02/17/21 08:09 36.5 C 66 21 138/73 91 02/17/21 08:00 54 L Laboratory Results Short CBC 02/17/21 Range/Units 05:33 WBC 7.07 (4.8-10.8) K/uL Hgb 14.0 (12.0-16.0) g/dL Hct 43.4 (37-47) % Plt Count 198 (130-400) K/uL BMP 02/17/21 05:33 Sodium 143 Potassium 4.2 Chloride 112 H Carbon Dioxide 26 BUN 28 H Creatinine 0.89 Glucose 108 H Calcium 8.6 Liver Function 02/17/21 Range/Units 05:33 AST 26 (15-37) U/L ALT 28 (12-78) U/L
[2021-02-18] MEDS: LEVOTHYROXINE SODIUM 100 MCG TABLET PO SCH (05:49)
[2021-02-18 07:03] LABS: Hematocrit (blood only) 42.6 % (37-47); Hemoglobin 14.2 g/dL (12.0-16.0)
[2021-02-18 07:25] LABS: BUN Creatinine Ratio 34.7 (10-20); Calcium 8.6 mg/dl (8.5-10.1); Est GFR (African American) 93.4; Est GFR (Non-African American) 80.6
[2021-02-18] MEDS: cefTRIAXone SODIUM 2,000 MG in DEXTROSE 5% 50 ML IV SCH (08:52)
[2021-02-18] MEDS: dexAMETHasone 6 MG in SYRINGE 0 ML IV SCH (08:52)
[2021-02-18] MEDS: FLUTICASONE PROPIONATE NA SPR 16 GM BTL SCH ×2 (08:52→19:59)
[2021-02-18] MEDS: INSULIN ASPART 100 UNITS/ML 3 ML PEN SC SCH ×4 (08:53→20:53)
[2021-02-18] MEDS: INSULIN GLARGINE SOLOSTAR 100 UNITS/ML 3 ML PEN SC SCH (08:54)
[2021-02-18] MEDS: INSULIN HUMAN NPH SC SCH (08:54)
[2021-02-18] MEDS: REMDESIVIR 100 MG in SODIUM CHLORIDE 0.9% 230 ML IV SCH (11:55)
[2021-02-18] MEDS: SODIUM CHLORIDE 0.9% 10ML FLUSH IV SCH (12:20)
--- NOTE | 2021-02-18 17:55 | Hospitalist Progress Note ---
Date of Service February 18, 2021 Assessment & Plan (1) Pneumonia due to COVID-19 virus: Patient is a 55 yr female who presents with COVID pneumonia and hypoxia. Acute respiratory failure with hypoxia Multifocal COVID-19 pneumonia -CTA:No pulmonary emboli identified. Progression of moderate to extensive bilateral airspace opacities since chest radiograph performed earlier today. The findings represent viral pneumonia. Multiple mildly enlarged mediastinal and bilateral hilar lymph nodes which are likely reactive. Cardiomegaly. Hepatic steatosis. -Procalcitonin 0.09 -D-dimer 1630 Completed Remdesivir course Continue Dexamethasone Day #5/10 Monitor volume status Pulmonary Hygiene Antitussive PRN Lasix PRN Encourage to prone Titrate oxygen to keep sats greater than 90% We will check chest x-ray, procalcitonin tomorrow Acute Kidney Injury Cr:1.4>1.0>0.82 Avoid nephrotoxic agents as able Received gentle IV fluids Monitor renal function Vaginal Bleeding Had Menopauses ~5yrs ago Consulted OBGYN Hb stable DM II New Diagnosis HbA1C:7.4 Continue insulin therapy Monitor BGs UTI-POA Blood Culture: No growth to date Urine culture: E.Coli Completed Rocephin course Hypothyroidism Continue Levothyroxine Morbid obesity BMI 50 DVT Px: Heparin SQ SCDs If Vaginal bleeding reoccurs--Will DC Heparin Code Status Full Code Admission and Anticipated Discharge Date Admission Date: February 14, 2021 Subjective Patient is seen and examined at bedside States feeling much better today Denies any shortness of breath Has minimal cough Vaginal bleeding much improved Hb stable Denies chest pain, nausea, vomiting, diarrhea, abdominal pain Review of Systems Review of Systems: All systems reviewed & are unremarkable except as noted in HPI & below Physical Exam Physical Exam: Physical Exam: Vitals signs as noted above General Appearance:Morbidly Obese, no apparent distress Head: normocephalic, Atraumatic Eyes: normal inspection, EOMI Neck: supple, Trachea midline Respiratory/Chest: Decreased breath sounds, CTA Cardiovascular: S1, S2, No murmur Abdomen/GI:Soft, Non tender, Bowel sounds present Extremities/Musculoskeletal:normal inspection, Trace edema Neurologic/Psych:AAOX3, grossly no focal neurological deficits Skin: normal color, warm Results & Data Results & Data ([facility]) Vital Signs (Past 12 Hours) Vital Signs Temp Pulse Pulse Resp BP BP Pulse Ox 02/18/21 15:59 36.6 C 58 L 24 137/97 95 02/18/21 15:00 52 L 02/18/21 12:26 37.0 C 53 L 18 147/73 H 93 02/18/21 07:37 36.6 C 56 L 22 148/94 H 92 02/18/21 07:30 54 L 02/18/21 06:00 Pulse Ox 02/18/21 15:59 02/18/21 15:00 02/18/21 12:26 02/18/21 07:37 02/18/21 07:30 02/18/21 06:00 90 Laboratory Results Short CBC 02/18/21 Range/Units 06:17 Hgb 14.2 (12.0-16.0) g/dL Hct 42.6 (37-47) % BMP 02/18/21 06:17 Sodium 143 Potassium 4.0 Chloride 111 H Carbon Dioxide 28 BUN 29 H Creatinine 0.82 Glucose 101 H Calcium 8.6 Liver Function 02/18/21 Range/Units 06:17 AST 24 (15-37) U/L ALT 31 (12-78) U/L
[2021-02-18] MEDS: HEPARIN SOD 5,000 UNIT/0.5 ML VIAL SQ SCH (20:01)
[2021-02-19] MEDS: LEVOTHYROXINE SODIUM 100 MCG TABLET PO SCH (05:26)
[2021-02-19 06:18] LABS: Hematocrit (blood only) 45.5 % (37-47)
[2021-02-19 06:55] LABS: BUN Creatinine Ratio 34.3 (10-20); Calcium 8.6 mg/dl (8.5-10.1); Creatinine Clr Calc Pharmacy 115.8 ml/min; Est GFR (African American) 89.4; Est GFR (Non-African American) 77.1; Potassium 3.9 mmol/L (3.5-5.1)
[2021-02-19] MEDS ORDERED: PHARMACY GLYCEMIC MGMT CONSULT PRN (08:14)
[2021-02-19] MEDS: INSULIN ASPART 100 UNITS/ML 3 ML PEN SC SCH ×4 (08:21→20:56)
[2021-02-19] MEDS: INSULIN HUMAN NPH SC SCH (08:22)
[2021-02-19] MEDS: FLUTICASONE PROPIONATE NA SPR 16 GM BTL SCH ×2 (08:24→20:54)
[2021-02-19] MEDS: HEPARIN SOD 5,000 UNIT/0.5 ML VIAL SQ SCH ×2 (08:25→20:57)
[2021-02-19] MEDS: dexAMETHasone 6 MG in SYRINGE 0 ML IV SCH (08:30)
--- NOTE | 2021-02-19 10:37 | XRay Report ---
XR chest 1V portable CLINICAL HISTORY: COVID COMPARISON STUDY: Chest CT February 14, 2021. Chest radiograph February 15, 2021. FINDINGS: Lung volumes are normal. There is no pneumothorax or pleural effusion. Cardiomegaly is unch anged. There are are extensive bilateral airspace opacities. Slight improvement is noted within the r ight lung since prior exam. IMPRESSION: Extensive bilateral airspace opacities, slightly improved since prior exam. ACT 112: Negative or not required by law. Electronically signed by: Caleb Leyva M.D. 02/19/2021 10:36 AM
--- NOTE | 2021-02-19 11:38 | Pharmacy Report ---
Pharmacy Glycemic Short Note 2 - Date of Service February 19, 2021 - Glycemic Short BSG Results (Last 24 hours): 02/18/21 02/18/21 02/19/21 16:04 20:39 05:39 Glucose 70 POC Glucose 180 H 158 H 02/19/21 07:29 Glucose POC Glucose 79 OUTPATIENT ANTIDIABETIC REGIMEN: * N/A - no prior dx of DM * A1c = 7.4% 02/15/21 ASSESSMENT: 02/19: * BSGs well controlled over last 24 hrs * 88 units SQ insulin administered over last 24 hr while tolerating a diet * Dexamethasone 6mg IV daily continues * Fasting BSG 70-79 this AM w/ 40 units basal on board (10 Lantus + 30 NPH); will d/c the Lantus order * Post-prandial BSGs well controlled with current NPH + Novolog orders PLAN FOR INPATIENT GLYCEMIC CONTROL: * Basal insulin - decrease * DISCONTINUE LANTUS * NPH 30 units (~0.3units/kg adj BW) SC AM with IV dexamethasone (hold if dexamethasone held/discontinued) * Bolus insulin - no change * NovoLog per scale ACHS and at 0200 * Goal Range: Low 110 mg/dL - High 140 mg/dL * Correction Factor: 18 mg/dL/unit * Nutritional / Prandial insulin per carb ratio of 1 unit per 5 grams CHO consumed PLAN FOR DISCHARGE: * HbA1c was 7.4% from this admission which reveals a dx of T2DM. * Recommend diet change and exercise upon discharge to help control T2DM. * Recommend starting metformin 500 mg ER once daily with dinner. Continue to titrate metformin dosing upwards as recommended. Dosage increases should be made in increments of 500 mg weekly, up to 2,000 mg/day PO, given in divided doses. Doses above 2000 mg/day may be better tolerated if divided and given 3 times per day with meals. Max: 2,550 mg/day PO, in divided doses. B12 s upplementation may be necessary with lobsterman metformin.
--- NOTE | 2021-02-19 16:08 | Hospitalist Progress Note ---
Date of Service February 19, 2021 Assessment & Plan (1) Pneumonia due to COVID-19 virus: Patient is a 55 yr female who presents with COVID pneumonia and hypoxia. Acute respiratory failure with hypoxia Multifocal COVID-19 pneumonia -CTA:No pulmonary emboli identified. Progression of moderate to extensive bilateral airspace opacities since chest radiograph performed earlier today. The findings represent viral pneumonia. Multiple mildly enlarged mediastinal and bilateral hilar lymph nodes which are likely reactive. Cardiomegaly. Hepatic steatosis. -Procalcitonin 0.09 -D-dimer 1630 Completed Remdesivir course Continue Dexamethasone Day #6/10 Monitor volume status Pulmonary Hygiene Antitussive PRN Lasix PRN Encourage to prone Titrate oxygen to keep sats greater than 90-92% CXR today showed slightly improved bilateral airspace opacities Needs 2 step prior to discharge Acute Kidney Injury Cr:1.4>1.0>0.85 Avoid nephrotoxic agents as able Received gentle IV fluids Monitor renal function Vaginal Bleeding Had Menopauses ~5yrs ago Consulted OBGYN Hb stable DM II New Diagnosis HbA1C:7.4 Continue insulin therapy Monitor BGs UTI-POA Blood Culture: No growth to date Urine culture: E.Coli Completed Rocephin course Hypothyroidism Continue Levothyroxine Morbid obesity BMI 50 DVT Px: Heparin SQ for now SCDs If Vaginal bleeding reoccurs--Will DC Heparin Code Status Full Code Admission and Anticipated Discharge Date Admission Date: February 14, 2021 Subjective Patient is seen and examined at bedside Still requiring 4 L of supplemental oxygen to maintain saturation Denies any vaginal bleeding today Offers no other complaints Procalcitonin remains negative Persistent minimal cough Denies Dyspnea, chest pain, nausea, vomiting, diarrhea, abdominal pain Review of Systems Review of Systems: All systems reviewed & are unremarkable except as noted in HPI & below Physical Exam Physical Exam: Physical Exam: Vitals signs as noted above General Appearance:Morbidly Obese, no apparent distress Head: normocephalic, Atraumatic Eyes: normal inspection, EOMI Neck: supple, Trachea midline Respiratory/Chest: Decreased breath sounds, CTA Cardiovascular: S1, S2, No murmur Abdomen/GI:Soft, Non tender, Bowel sounds present Extremities/Musculoskeletal:normal inspection, Trace edema Neurologic/Psych:AAOX3, grossly no focal neurological deficits Skin: normal color, warm Results & Data Results & Data ([facility]) Vital Signs (Past 12 Hours) Vital Signs Temp Pulse Pulse Pulse Pulse Resp BP 02/19/21 11:30 36.5 C 66 93 H 18 137/92 02/19/21 11:21 55 L 02/19/21 08:00 36.6 C 58 L 20 151/92 H 02/19/21 06:00 02/19/21 04:54 36.3 C L 64 18 BP Pulse Ox Pulse Ox 02/19/21 11:30 93 02/19/21 11:21 02/19/21 08:00 95 02/19/21 06:00 95 02/19/21 04:54 148/91 H 92 Laboratory Results Short CBC 02/19/21 Range/Units 05:39 Hgb 15.0 (12.0-16.0) g/dL Hct 45.5 (37-47) % BMP 02/19/21 05:39 Sodium 142 Potassium 3.9 Chloride 109 H Carbon Dioxide 28 BUN 29 H Creatinine 0.85 Glucose 70 Calcium 8.6 Liver Function 02/19/21 Range/Units 05:39 AST 24 (15-37) U/L ALT 32 (12-78) U/L
[2021-02-20] MEDS: LEVOTHYROXINE SODIUM 100 MCG TABLET PO SCH (05:42)
[2021-02-20 07:31] LABS: Hematocrit (blood only) 45.3 % (37-47); Mean Corpuscular Hemoglobin 30.6 pg (25-34); Mean Corpuscular Hgb Conc 33.1 g/dL (32-36); Mean Corpuscular Volume 92.4 fL (80-100); Mean Platelet Volume 10.1 fL (7.4-10.4); Platelet Count 224 K/uL (130-400); RDW Coefficient of Variation 13.7 % (11.5-14.5); RDW Standard Deviation 46.2 fL (36.4-46.3); White Blood Count 10.12 K/uL (4.8-10.8)
[2021-02-20 08:08] LABS: BUN Creatinine Ratio 29.4 (10-20); Calcium 9.2 mg/dl (8.5-10.1); Creatinine Clr Calc Pharmacy 98.6 ml/min; Est GFR (African American) 73.5; Est GFR (Non-African American) 63.4; Potassium 4.1 mmol/L (3.5-5.1)
[2021-02-20] MEDS: dexAMETHasone 6 MG in SYRINGE 0 ML IV SCH (09:06)
[2021-02-20] MEDS: INSULIN HUMAN NPH SC SCH (09:07)
[2021-02-20] MEDS: HEPARIN SOD 5,000 UNIT/0.5 ML VIAL SQ SCH (09:07)
[2021-02-20] MEDS: FLUTICASONE PROPIONATE NA SPR 16 GM BTL SCH (09:07)
[2021-02-20] MEDS: INSULIN ASPART 100 UNITS/ML 3 ML PEN SC SCH ×2 (09:08→12:39)
--- NOTE | 2021-02-20 10:49 | Pharmacy Report ---
Pharmacy Glycemic Short Note 2 - Date of Service February 20, 2021 - Glycemic Short BSG Results (Last 24 hours): 02/19/21 02/19/21 02/19/21 11:44 16:32 20:45 Glucose POC Glucose 108 H 216 H 184 H 02/20/21 02/20/21 06:49 07:22 Glucose 84 POC Glucose 81 OUTPATIENT ANTIDIABETIC REGIMEN: * N/A - no prior dx of DM * A1c = 7.4% 02/15/21 ASSESSMENT: 02/20 * 61 units SQ insulin administered over last 24 hrs while tolerating a diet * 50% BSGs at goal. Post-prandial BSG problematic second half of day yesterday - will increase Novolog doses * Fasting BSG at goal this AM. 30 units NPH had been given yesterday. Will continue the same NPH dose today given post-prandial elevations yesterday 02/19 * BSGs well controlled over last 24 hrs * 88 units SQ insulin administered over last 24 hr while tolerating a diet * Dexamethasone 6mg IV daily continues * Fasting BSG 70-79 this AM w/ 40 units basal on board (10 Lantus + 30 NPH); will d/c the Lantus order * Post-prandial BSGs well controlled with current NPH + Novolog orders PLAN FOR INPATIENT GLYCEMIC CONTROL: * Basal insulin - no change * NPH 30 units (~0.3units/kg adj BW) SC AM with IV dexamethasone (hold if dexamethasone held/discontinued) * Bolus insulin - increase * NovoLog per scale ACHS and at 0200 * Goal Range: Low 110 mg/dL - High 140 mg/dL * Correction Factor: 18 mg/dL/unit * Nutritional / Prandial insulin per carb ratio of 1 unit per 5 grams CHO consumed PLAN FOR DISCHARGE: * HbA1c was 7.4% from this admission which reveals a dx of T2DM. * Recommend diet change and exercise upon discharge to help control T2DM. * Recommend starting metformin 500 mg ER once daily with dinner. Continue to titrate metformin dosing upwards as recommended. Dosage increases should be made in increments of 500 mg weekly, up to 2,000 mg/day PO, given in divided doses. Doses above 2000 mg/day may be better tolerated if divided and given 3 times per day with meals. Max: 2,550 mg/day PO, in divided doses. B12 supplementation may be necessary with alf metformin.
--- NOTE | 2021-02-20 13:23 | Hospitalist Progress Note ---
Date of Service February 20, 2021 Assessment & Plan (1) Pneumonia due to COVID-19 virus: Patient is a 55 yr female who presents with COVID pneumonia and hypoxia. Acute respiratory failure with hypoxia Multifocal COVID-19 pneumonia -CTA:No pulmonary emboli identified. Progression of moderate to extensive bilateral airspace opacities since chest radiograph performed earlier today. The findings represent viral pneumonia. Multiple mildly enlarged mediastinal and bilateral hilar lymph nodes which are likely reactive. Cardiomegaly. Hepatic steatosis. -Procalcitonin 0.09 -D-dimer 1630 Completed Remdesivir course Continue Dexamethasone Day #7/10 Monitor volume status Pulmonary Hygiene Antitussive PRN Lasix PRN Encourage to prone Saturating low 90s on room air 2 step: Requires 3 L of supplemental oxygen with activity only Acute Kidney Injury Cr:1.4>1.0>0.85>1.00 Avoid nephrotoxic agents as able Received gentle IV fluids Monitor renal function Vaginal Bleeding Had Menopauses ~5yrs ago Consulted OBGYN Hb stable DM II New Diagnosis HbA1C:7.4 Continue insulin therapy Monitor BGs UTI-POA Blood Culture: No growth to date Urine culture: E.Coli Completed Rocephin course Hypothyroidism Continue Levothyroxine Morbid obesity BMI 50 DVT Px: Heparin SQ for now SCDs If Vaginal bleeding reoccurs--Will DC Heparin Code Status Full Code Admission and Anticipated Discharge Date Admission Date: February 14, 2021 Subjective Patient is seen and examined at bedside No new complaints Minimal cough Saturating low 90s on room air 2 step: Requires 3 L of supplemental oxygen with activity Eager to get discharged Denies Dyspnea, chest pain, nausea, vomiting, diarrhea, abdominal pain Review of Systems Review of Systems: All systems reviewed & are unremarkable except as noted in HPI & below Physical Exam Physical Exam: Physical Exam: Vitals signs as noted above General Appearance:Morbidly Obese, no apparent distress Head: normocephalic, Atraumatic Eyes: normal inspection, EOMI Neck: supple, Trachea midline Respiratory/Chest: Decreased breath sounds, CTA Cardiovascular: S1, S2, No murmur Abdomen/GI:Soft, Non tender, Bowel sounds present Extremities/Musculoskeletal:normal inspection, Trace edema Neurologic/Psych:AAOX3, grossly no focal neurological deficits Skin: normal color, warm Results & Data Results & Data ([facility]) Vital Signs (Past 12 Hours) Vital Signs Temp Pulse Pulse Pulse Pulse Pulse Pulse 02/20/21 11:36 36.9 C 67 02/20/21 11:08 74 79 77 02/20/21 10:00 02/20/21 07:23 36.8 C 54 L 02/20/21 07:00 45 L 02/20/21 03:39 37.1 C 55 L Pulse Pulse Resp Resp Resp Resp Resp 02/20/21 11:36 19 02/20/21 11:08 76 67 20 20 22 18 02/20/21 10:00 20 02/20/21 07:23 20 02/20/21 07:00 02/20/21 03:39 20 Resp BP BP Pulse Ox Pulse Ox Pulse Ox Pulse Ox 02/20/21 11:36 119/80 91 02/20/21 11:08 18 86 L 90 84 L 02/20/21 10:00 90 02/20/21 07:23 130/77 92 02/20/21 07:00 02/20/21 03:39 129/67 90 Pulse Ox Pulse Ox 02/20/21 11:36 02/20/21 11:08 89 L 91 02/20/21 10:00 02/20/21 07:23 02/20/21 07:00 02/20/21 03:39 Laboratory Results Short CBC 02/20/21 Range/Units 06:49 WBC 10.12 (4.8-10.8) K/uL Hgb 15.0 (12.0-16.0) g/dL Hct 45.3 (37-47) % Plt Count 224 (130-400) K/uL BMP 02/20/21 06:49 Sodium 141 Potassium 4.1 Chloride 108 H Carbon Dioxide 29 BUN 29 H Creatinine 1.00 Glucose 84 Calcium 9.2
--- NOTE | 2021-02-20 15:40 | Discharge Summary ---
Date of Service February 20, 2021 Admission HPI Per Admitting Provider CHIEF COMPLAINT: Shortness of breath. HISTORY OF PRESENT ILLNESS: This is a 55-year-old female with past medical history significant for hyperlipidemia, prediabetes, hypothyroidism, morbid obesity, history of fibroid uterus, postmenopausal bleeding, presents with shortness of breath. The patient says she has COVID symptoms since about 10 days ago on Friday with cough, on and off headaches, on and off fevers, but it really got worse from Friday and last Friday she was tested positive for COVID, but symptoms were not getting better. She has few episodes of diarrhea, short of breath, poor appetite, not eating anything which prompted her to come to the ER and she was saturating only 72% on room air, requiring 6 liters oxygen in the ER. Denies any chest pain, no blurred vision, no earache, no runny nose, no sore throat, has cough with whitish yellow phlegm. Currently resting comfortably, hemodynamically stable, talking in full sentences and seems comfortable. Normal bladder movements. No rash. She says she was exposed at workplace. Admission Exam Per Admitting Provider PHYSICAL EXAMINATION: GENERAL: The patient is morbidly obese, not in acute distress. VITAL SIGNS: Temperature 38, pulse 77, respiratory rate 21, blood pressure 122/69, currently 99/74, oxygen when she came in, she was in 78%, currently 92% on 6 liters. HEENT: Pupils equal, round, reactive to light. Oral mucosa moist. NECK: No JVD. No neck masses. CARDIOVASCULAR: S1, S2, regular rate and rhythm, no murmur, no gallop. RESPIRATORY SYSTEM: Normal AP diameter. No accessory muscle use. No wheezing, no crackles. ABDOMEN: Soft, bowel sounds present, nontender. No distention. CENTRAL NERVOUS SYSTEM: Cranial nerves II-XII grossly intact, nonfocal. EXTREMITIES: No edema, no erythema. Principal Diagnosis Acute respiratory failure with hypoxia Multifocal COVID-19 pneumonia Acute Kidney Injury Vaginal Bleeding DM II-New Diagnosis Urinary Tract Infection-Resolved Discharge Data Allergies Allergy/AdvReac Type Severity Reaction Status Date / Time No Known Drug Allergies Allergy Unknown . Verified 05/06/19 07:56 Consultations 02/14/21 04:21 ED Decision to Admit Stat 02/16/21 15:30 Consult Gynecology Routine Procedures Performed CTA:No pulmonary emboli identified. Progression of moderate to extensive bilateral airspace opacities since chest radiograph performed earlier today. The findings represent viral pneumonia. Multiple mildly enlarged mediastinal and bilateral hilar lymph nodes which are likely reactive. Cardiomegaly. Hepatic steatosis Ordered Studies 02/14/21 05:43 CT angio chest PE protocol Stat Diabetes Follow up Diabetes Follow-up Needed for Newly Diagnosed Diabetes Hospital Course (1) Pneumonia due to COVID-19 virus: Patient is a 55 yr female who presents with COVID pneumonia and hypoxia. Acute respiratory failure with hypoxia Multifocal COVID-19 pneumonia -CTA:No pulmonary emboli identified. Progression of moderate to extensive bilateral airspace opacities since chest radiograph performed earlier today. The findings represent viral pneumonia. Multiple mildly enlarged mediastinal and bilateral hilar lymph nodes which are likely reactive. Cardiomegaly. Hepatic steatosis. -Procalcitonin 0.09 -D-dimer 1630 Completed Remdesivir course Continue Dexamethasone Day #7 Monitor volume status Pulmonary Hygiene Antitussive PRN Lasix PRN Encourage to prone Saturating low 90s on room air 2 step: Requires 3 L of supplemental oxygen with activity only Acute Kidney Injury Cr:1.4>1.0>0.85>1.00 Avoid nephrotoxic agents as able Received gentle IV fluids Monitor renal function Vaginal Bleeding Had Menopauses ~5yrs ago Consulted OBGYN Hb stable DM II New Diagnosis HbA1C:7.4 Continue insulin therapy Monitor BGs UTI-POA Blood Culture: No growth to date Urine culture: E.Coli Completed Rocephin course Hypothyroidism Continue Levothyroxine Morbid obesity BMI 50 DVT Px: Heparin SQ for now SCDs If Vaginal bleeding reoccurs--Will DC Heparin Code Status Full Code Total Time Total Time Spent Total Time Spent (In Minutes): 40 minutes Total Time Includes: Examination of the Patient, Discharge Planning, Medication Reconciliation, Communication With Other Providers and Other Discharge Plan Discharge Items Patient Disposition: Home - Self-Care Reason For Visit: SOB Discharge Diagnosis: Acute respiratory failure with hypoxia Multifocal COVID-19 pneumonia Acute Kidney Injury Vaginal Bleeding DM II-New Diagnosis Urinary Tract Infection-Resolved Activity: Per Instructions section Exercise/Sports: Gradually increase as tolerated Non-emergency contact: Primary Care Provider Call non-emergency contact if: you have any medication questions, your symptoms worsen, your pain is not controlled, your pain is worsening, your pain is unusual for you, your pain is concerning for you and you have a fever Follow-up/Referrals: David Brush MD [Primary Care Provider] - 02/23/21 9:20 am Diet: Carb Consistent or DM2 Addtl Attending Provider Instructions: Follow-up with your primary care physician in 1 week advised Follow up with your product communications manager for further evaluation of postmenopausal bleeding Use supplemental oxygen 3 L via nasal cannula with activity as advised. Start taking Metformin 500mg daily and if tolerated can increase to twice a day. Discussed with your physician for further instructions. Seek immediate medical attention if your symptoms reoccur or worsen Coronavirus disease 2019 (COVID-19) is a virus that causes a respiratory illness. It is caused by a coronavirus called 2019 novel coronavirus (2019- nCoV). There are many types of coronavirus. Coronaviruses are a very common cause of bronchitis. They may sometimes cause lung infection(pneumonia). Symptoms can range from mild to severe r espiratory illness. These viruses are also foundin some animals. COVID-19 was first found in people in [facility], in late 2018. In 2020, several cases of COVID-19 have been confirmed in the [place] Public health officials are working to find the source. How the virus spreads is not yet fully known. It may be spread through droplets of fluid that a person coughs or sneezes into the air. It may be spread if you touch a surface with virus on it, such as a handle or object, and then touch your mouth. What are the symptoms of COVID-19? Some people have no symptoms or mild symptoms. Symptoms may appear 2 to 14 days after contact with the virus. Symptoms can include: Fever Coughing Trouble breathing What are possible complications from COVID-19? In many cases, this virus can cause infection (pneumonia) in both lungs. In some cases, this can cause . How is COVID-19 diagnosed? Your healthcare provider will ask about your symptoms. He or she will also ask about your recent travel and contact with sick people. Testing for the virus is only done through the CDC. If yourhealthcare provider thinks you may have COVID- 19, he or she will work with your local health department and the CDC on testing. Follow all instructions from your healthcare provider. COVID-19 is diagnosed by: Nasal and throat swab. A cotton-tipped swab is wiped inside your nose or throat. This is done to check for viruses in your nasal mucus. Sputum culture. A small sample of mucus coughed from your lungs (sputum) is collected if you have a cough. It is checked for the virus. How is COVID-19 treated? There is currently no medicine to treat the virus. Treatment is done to help your body while it fights the virus. This is known as supportive care. Supportive care may include: Pain medicine. These include acetaminophen and ibuprofen. They are used to help ease pain and reduce fever. Bed rest. This helps your body fight the illness. For severe illness, you may need to stay in the hospital. Care during severe illness may include: IV (intravenous) fluids.These are given through a vein to help keep your body hydrated. Oxygen. Supplemental oxygen or ventilation with a breathing machine (ventilator) may be given. This is done to keep enough oxygen in your body. Are you at risk for COVID-19? If youve been to a place where people have been sick with this virus, you are at risk for infection. You are at risk if you: Recently traveled to an affected area Had contact with a sick person who recently traveled to this area Had contact with a person who was diagnosed with COVID-19 How can COVID-19 be prevented? There is no vaccine yet. The best prevention is to not have contact with the virus. The CDC advises that people should not travel to areas where there are COVID-19 outbreaks right now for any reason that is not urgent. To help prevent spreading the infection, wash your hands often, or use an alcohol-basedhand workers compensation legal secretary. If you are in an area with COVID-19: Wash your hands often. Or use an alcohol-based hand workers compensation legal secretary often. Only touch your eyes, nose, or mouth with clean hands. Dont have contact with people who are sick. Follow local instructions about being in public. For example, you may be told to not use public transport for a period of time. Stay away from markets that have live or animals. Wash your hands after touching any animals. Don't touch animals that may be sick. Dont share eating or drinking tools with sick people. Dont kiss someone who is sick. Clean surfaces often with disinfectant. If you were in an area with COVID-19 in the last 14 days: Call your healthcare provider. He or she can talk with local health staff to see what action may be needed. Follow all instructions from your provider. Take your temperature every morning and evening for at least 14 days. This is to check for fever. Keep a record of the readings. Keep watch for symptoms of the virus. Tell your provider right away if you have symptoms. If you were in an area with COVID-19 and have a fever or other symptoms: Dont panic. Keep in mind that other illnesses can cause similar symptoms. Stay away from work, school, and public places. Limit physical contact with family members. Don't kiss anyone or share eating or drinking utensils. Clean surfaces you touch with disinfectant. This is to help prevent the virus from spreading. Call your healthcare provider. Explain that you have been exposed to COVID-19 and have symptoms. Do this before going to any hospital. Wait for instructions. Keep in mind that healthcare staff may wear protective equipment such as masks, gowns, gloves, and eye protection. You may be put in a separate room. This is to prevent the possible virus from spreading. Tell the healthcare staff about recent travel. This includes local travel on public transport. Staff may need to find other people you have been in contact with. Follow all instructions the healthcare staff give you. If you have been diagnosed with COVID-19 Follow all instructions from your healthcare provider. Dont leave your home, except to get medical care. Call your healthcare providers office before going. They can prepare and give you instructions. This will help prevent the virus from spreading. Dont go to work, school, or public areas. Dont use public transport or taxis. Stay away from other people in your home. Have them wear face masks around you. Dont share household items or food. Wear a face mask if you can. This includes at home or in a medical facility. Cover your face with a tissue when you cough or sneeze. Throw the tissue away. Wash your hands. Wash your hands often. Caregivers should: Follow all instructions from healthcare staff. Wear a face mask and protective clothing as advised. Wash hands often. Keep track of the sick persons symptoms. Clean surfaces, fabrics, and laundry thoroughly. Keep other people away from the sick person. When to call your healthcare provider Call your healthcare provider: If youve recently traveled and have symptoms If you have been diagnosed with COVID-19 and your symptoms are worse To learn more To find out more about COVID-19, visit the CDC website at www.cdc.gov/coronavirus/2019-ncov/index.html. The [employer]. [address] [place] [address], [place] [address]. All rights reserved. This information is not intended as a substitute for professional medical care. Always follow your healthcare professional's instructions. This information has been adapted from [employer] Home Isolation COVID-19 Instructions The following information about Home Isolation is from the CDC Website: https://www.cdc.gov/coronavirus/2019-ncov/hcp/uswqxern-bruwali-bqwxiq.html Stay home except to get medical care People who are mildly ill with COVID-19 are able to isolate at home during their illness. You should restrict activities outside your home, except for getting medical care. Do not go to work, school, or public areas. Avoid using public transportation, ride-sharing, or taxis. Separate yourself from other people and animals in your home People: As much as possible, you should stay in a specific room and away from other people in your home. Also, you should use a separate bathroom, if available. Animals: You should restrict contact with pets and other animals while you are sick with COVID-19, just like you would around other people. Although there have not been reports of pets or other animals becoming sick with COVID-19, it is still recommended that people sick with COVID-19 limit contact with animals until more information is known about the virus. When possible, have another member of your household care for your animals while you are sick. If you are sick with COVID-19, avoid contact with your pet, including petting, snuggling, being kissed or licked, and sharing food. If you must care for your pet or be around animals while you are sick, wash your hands before and after you interact with pets and wear a face mask. Call ahead before visiting your doctor If you have a medical appointment, call the healthcare provider and tell them that you have or may have COVID-19. This will help the healthcare providers office take steps to keep other people from getting infected or exposed. Wear a face mask You should wear a face mask when you are around other people (e.g., sharing a room or vehicle) or pets and before you enter a healthcare providers office. If you are not able to wear a face mask (for example, because it causes trouble breathing), then people who live with you should not stay in the same room with you, or they should wear a face mask if they enter your room. Cover your coughs and sneezes Cover your mouth and nose with a tissue when you cough or sneeze. Throw used tissues in a lined trash can. Immediately wash your hands with soap and water fo r at least 20 seconds or, if soap and water are not available, clean your hands with an alcohol-based hand workers compensation legal secretary that contains at least 60% alcohol. Clean your hands often Wash your hands often with soap and water for at least 20 seconds, especially after blowing your nose, coughing, or sneezing; going to the bathroom; and before eating or preparing food. If soap and water are not readily available, use an alcohol-based hand workers compensation legal secretary with at least 60% alcohol, covering all surfaces of your hands and rubbing them together until they feel dry. Soap and water are the best option if hands are visibly dirty. Avoid touching your eyes, nose, and mouth with unwashed hands. Avoid sharing personal household items You should not share dishes, drinking glasses, cups, eating utensils, towels, or bedding with other people or pets in your home. After using these items, they should be washed thoroughly with soap and water. Clean all high-touch surfaces everyday High touch surfaces include counters, tabletops, doorknobs, bathroom fixtures, toilets, phones, keyboards, tablets, and bedside tables. Also, clean any josé miguel faces that may have blood, stool, or body fluids on them. Use a household cleaning spray or wipe, according to the label instructions. Labels contain instructions for safe and effective use of the cleaning product including precautions you should take when applying the product, such as wearing gloves and making sure you have good ventilation during use of the product. Monitor your symptoms Seek prompt medical attention if your illness is worsening (e.g., difficulty breathing).Beforeseeking care, call your healthcare provider and tell them th at you have, or are being evaluated for, COVID-19. Put on a face mask before you enter the facility. These steps will help the healthcare providers office to keep other people in the office or waiting room from getting infected or exposed. Ask your healthcare provider to call the local or state health department. Persons who are placed under active monitoring or facilitated self- monitoring should follow instructions provided by their local health department or occupational health professionals, as appropriate. When working with your local health department check their available hours. If you have a medical emergency and need to call 911, notify the dispatch personnel that you have, or are being evaluated for COVID-19. If possible, put on a face mask before emergency medical services arrive. Discontinuing home isolation Patients with confirmed COVID-19 should remain under home isolation precautions until the risk of secondary transmission to others is thought to be low. The decision to discontinue home isolation precautions should be made on a [id number] basis, in consultation with healthcare providers and [facility] and [facility] health departments. Pending Studies at Discharge: No Stand-Alone Forms: My [facility], Smoking Cessation Medications and DC Order Prescriptions: New metformin 500 mg tablet 500 mg PO DAILY Qty: 60 RF: 0 Continued levothyroxine 100 mcg Tablet 100 mcg PO QAM RF: 0 fluticasone propionate [Flonase Allergy Relief] 50 mcg/actuation [place],Suspension 2 spray INTRANASAL BID RF: 0 Discharge Orders: Discharge Order (Routine); Ordered 02/20/21 Ordered By: Clayton Nagel/Other Patient Handouts: COVID-19 Home Care, Managing Type 2 Diabetes, Or al Medicines for Type 2 Diabetes Admission Data Admit Date/Time: 02/14/21 05:43 Attending Provider: Clayton Purdy Admit Provider: Reuben Schwarz Primary Care Provider: David Brush Other Providers: Reuben Schwarz ; Grey Brock Other Interventions: Discharge Summary Assessment (RN) Last Done: 02/20/21 14:12
== END 2021-02-20 15:44 | disposition home or self-care (01) | DRG 177 ==
LOC: ED 02:54 → 2E 05:43